=== PATIENT | female | born 1940 | race Caucasian/White ===

== ENCOUNTER 2016-09-27 21:09 | Emergency (ER) | payer MEDICARE ==
[~2016-09-27] VITALS: Ht 152.4 cm; Wt 63.5 kg
[2016-09-27] MEDS ORDERED: LISI-334 PO (21:45)
[2016-09-27] MEDS ORDERED: predniSONE 20 MG TABLET PO ONE (21:45)
[2016-09-27] MEDS ORDERED: TRIA15OI TP (21:45)
[2016-09-27] MEDS ORDERED: diphenhydrAMINE HCL 25 MG CAPSULE PO ONE (21:45)
[2016-09-27] MEDS ORDERED: PRED20TA PO (21:45)
[2016-09-27] MEDS ORDERED: LISINOPRIL 10 MG TABLET PO ONE (21:45)
--- NOTE | 2016-09-27 21:45 | PHYS DOC ---
Past Medical History Past Medical History: Anxiety, Depression, GERD, High Cholesterol, Hypertension , Hypothyroid, Other Additional Past Medical Histor: seasonal allergies Past Surgical History: Hysterectomy, Tubal ligation Alcohol Use: None Drug Use: None Adult General Chief Complaint Chief Complaint: SKIN RASH/ABSCESS [facility] HPI Patient is a 75 year old female presents to the emergency department with a history of rash to her chest. Patient states the rash has been their for a while. Family member at bedside states the rash developed over night. Patient states the area itches, denies drainage or discharge from the site. Patient denies fever, chills or nausea or vomiting. Last took benadryl this morning. Patient has a history of HTN although has moved from [place] and does not have BP medications. Patient denies SOA, chest pain headache or blurred vision. Review of Systems Review of Systems Constitutional: Denies fever or chills [] Eyes: Denies change in visual acuity, redness, or eye pain [] HENT: Denies nasal congestion or sore throat [] Respiratory: Denies cough or shortness of breath [] Cardiovascular: No additional information not addressed in HPI [] GI: Denies abdominal pain, nausea, vomiting, bloody stools or diarrhea [] : Denies dysuria or hematuria [] Musculoskeletal: Denies back pain or joint pain [] Integument: rash denies skin lesions [] Neurologic: Denies headache, focal weakness or sensory changes [] Endocrine: Denies polyuria or polydipsia [] Allergies Allergies Allergies Coded Allergies Type Severity Reaction Last Updated Verified codeine Allergy Intermediate Nausea and Vomiting 09/27/16 Yes Physical Exam Physical Exam Constitutional: Well developed, well nourished, no acute distress, non-toxic appearance. [] HENT: Normocephalic, atraumatic, bilateral external ears normal, oropharynx moist, no oral exudates, nose normal. [] Eyes: PERRLA, EOMI, conjunctiva normal, no discharge. [] Neck: Normal range of motion, no tenderness, supple, no stridor. [] Cardiovascular:Heart rate regular rhythm, no murmur [] Lungs & Thorax: Bilateral breath sounds clear to auscultation [] Skin: Warm, dry, no erythema. Patient with red raised rash noted the chest that crosses over the midline. No drainage, no discharge noted. Back: No tenderness Extremities: No tenderness, no cyanosis, no clubbing, ROM intact, no edema. [] Neurologic: Alert and oriented X 3, normal motor function, normal sensory function, no focal deficits noted. [] Psychologic: Affect normal, judgement normal, mood normal. [] Current Patient Data Vital Signs Vital Signs Date Time Temp Pulse Resp B/P (MAP) Pulse Ox O2 Delivery O2 Flow Rate FiO2 09/27/16 21:24 98.0 90 22 95 Room Air 98.0 EKG EKG [] Radiology/Procedures Radiology/Procedures [] Course & Med Decision Making Course & Med Decision Making Pertinent Labs and Imaging studies reviewed. (See chart for details) Patient will be provided with a prescription for lisinopril here in the emergency department. She will be discharged home with her normal dosage in which they had a list of her medications. She'll be recommended to take Benadryl 25 mg every 6 hours for itching and irritation. Patient will also be encouraged take prednisone to help with the irritation. We'll provide her medical and cream to be placed over the area. Signs symptoms to return back to emergency department as been provided. Patient agrees with discharge instructions treatment regimens and follow-up recommendations. Patient family member been instructed Benadryl will cause drowsiness do not take if she needs to be alert and oriented. [] Dragon Disclaimer Dragon Disclaimer This electronic medical record was generated, in whole or in part, using a voice recognition dictation system. Departure Departure Impression: Primary Impression: Contact dermatitis Additional Impression: HTN (hypertension) Disposition: 01 HOME, SELF-CARE Condition: STABLE Referrals: NO PCP (PCP) Patient Instructions: Contact Dermatitis, [id number], Hypertension Additional Instructions: Keep the area clean and dry. Keep the area as cool as possible this will help prevent irritation and itching. Medication as prescribed. Benadryl 25 mg every 6 hours. This medication will cause drowsiness do not take any be alert and oriented. Monitor your blood pressure on a daily basis and take this to your primary care physician or your appointment. Return to emergency prior signs symptoms of become worse. Follow-up through primary care physician within the next week. Scripts Triamcinolone Acetonide (TRIAMCINOLONE ACETONIDE 0.1% OINT) 15 Gm Oint...g. 1 LOWELL TP BID for WOUND CARE, #1 TUBE MIX WITH EUCERIN DIRECTED BY PHYSICIAN Prov: SHANNON SAHU APRN 09/27/16 Prednisone (PREDNISONE) 20 Mg Tablet 40 MG PO DAILY, #14 TAB Prov: SHANNON SAHU APRN 09/27/16 Lisinopril (LISINOPRIL) 20 Mg Tablet 1 TAB PO DAILY, #15 TAB 5 Refills Prov: SHANNON SAHU APRN 09/27/16 Problem Qualifiers SHANNON SAHU APRN Sep 27, 2016 21:45
[2016-09-27 21:48] VITALS: BP 178/77
== END 2016-09-27 21:50 | disposition home or self-care (01) ==
LOC: ER 21:09
DX: L25.9 Unspecified contact dermatitis, unspecified cause (principal); I10 Essential (primary) hypertension; F41.9 Anxiety disorder, unspecified; F32.9 Major depressive disorder, single episode, unspecified; K21.9 Gastro-esophageal reflux disease without esophagitis; E78.00 Pure hypercholesterolemia, unspecified; E03.9 Hypothyroidism, unspecified; Z88.5 Allergy status to narcotic agent; Z90.710 Acquired absence of both cervix and uterus; Z98.51 Tubal ligation status
CPT/HCPCS: 99284; J7512; Q0163

== ENCOUNTER 2016-10-06 10:24 | Inpatient (IN) | payer MEDICARE ==
[~2016-10-06] VITALS: Ht 152.4 cm; Wt 70.5 kg
[~2016-10-06 10:24] MED LIST: LISI-334 PO; PRED20TA PO; TRIA15OI TP
--- NOTE | 2016-10-06 10:32 | PHYS DOC ---
Past Medical History Past Medical History: Anxiety, Depression, GERD, High Cholesterol, Hypertension , Hypothyroid, Other Additional Past Medical Histor: seasonal allergies Past Surgical History: Hysterectomy, Tubal ligation Alcohol Use: None Drug Use: None Adult General Chief Complaint Chief Complaint: RECTAL BLEED HPI HPI Patient is a 75 year old female presenting to the emergency department for evaluation of abdominal pain and rectal bleeding. Patient says that she has hemorrhoids that have bled before in the past and she had 3 bowel movements since 8 PM last night and says that each one was associated with bright red blood. She says that it was not particularly hard and did not have diarrhea she 's been having diffuse abdominal cramping worse in her lower abdomen since 8:00 as well. Patient denies any prior surgical history and she denies taking any blood thinners. She is in no obvious distress with normal vital signs. Review of Systems Review of Systems Constitutional: Denies fever or chills [] Eyes: Denies change in visual acuity, redness, or eye pain [] HENT: Denies nasal congestion or sore throat [] Respiratory: Denies cough or shortness of breath [] Cardiovascular: No additional information not addressed in HPI [] GI: + abdominal pain, nausea, bloody stools : Denies dysuria or hematuria [] Musculoskeletal: Denies back pain or joint pain [] Integument: Denies rash or skin lesions [] Neurologic: Denies headache, focal weakness or sensory changes [] Current Medications Current Medications Current Medications Medications (Trade) Dose Ordered Sig/Jackie Start Time Stop Time Status Last Admin Dose Admin Fentanyl Citrate (Fentanyl 2ml Vial) 50 mcg PRN Q2HR PRN 10/06/16 13:30 10/07/16 13:29 Info (Do NOT chart on this entry -- for MONITORING) 1 each PRN DAILY PRN 10/06/16 11:00 10/08/16 10:59 Iohexol (Omnipaque 300 Mg/ml) 75 ml 1X ONCE 10/06/16 11:00 10/06/16 11:01 DC 10/06/16 11:36 60 ML Levofloxacin/ Dextrose 150 ml @ 100 mls/hr 1X ONCE 10/06/16 13:30 10/06/16 14:59 10/06/16 13:31 100 MLS/HR Metronidazole 100 ml @ 100 mls/hr 1X ONCE 10/06/16 13:30 10/06/16 14:29 10/06/16 13:31 100 MLS/HR Ondansetron HCl (Zofran) 4 mg PRN Q8HRS PRN 10/06/16 13:30 10/07/16 13:29 Pantoprazole Sodium (Protonix Vial) 40 mg 1X ONCE 10/06/16 10:45 10/06/16 10:46 DC 10/06/16 11:02 40 MG Sodium Chloride 1,000 ml @ 1,000 mls/hr 1X ONCE 10/06/16 10:45 10/06/16 11:44 DC 10/06/16 11:03 1,000 MLS/HR Allergies Allergies Allergies Coded Allergies Type Severity Reaction Last Updated Verified codeine Allergy Intermediate Nausea and Vomiting 09/27/16 Yes Physical Exam Physical Exam Constitutional: Well developed, well nourished, no acute distress, non-toxic appearance. [] HENT: Normocephalic, atraumatic, bilateral external ears normal, oropharynx moist, no oral exudates, nose normal. [] Eyes: PERRLA, EOMI, conjunctiva normal, no discharge. [] Neck: Normal range of motion, no tenderness, supple, no stridor. [] Cardiovascular:Heart rate regular rhythm, no murmur [] Lungs & Thorax: Bilateral breath sounds clear to auscultation [] Abdomen: Bowel sounds normal, soft, positive diffuse tenderness worse in lower quadrants but no rebound or guarding, no masses, no pulsatile masses. Rectal exam with [id number] sized external hemorrhoids that there is no active bleeding and they were nonthrombosed. Internal rectal examination with no tenderness or masses palpated. Skin: Warm, dry, no erythema, no rash. [] Back: No tenderness, no CVA tenderness. [] Extremities: No tenderness, no cyanosis, no clubbing, ROM intact, no edema. [] Neurologic: Alert and oriented X 3, normal motor function, normal sensory function, no focal deficits noted. [] Current Patient Data Vital Signs Vital Signs Date Time Temp Pulse Resp B/P (MAP) Pulse Ox O2 Delivery O2 Flow Rate FiO2 10/06/16 11:02 24 10/06/16 10:33 97.6 105 180/77 (111) 97 Room Air 97.6 Lab Values Laboratory Tests Test 10/06/16 10:40 10/06/16 10:46 10/06/16 10:52 Stool Occult Blood Positive (NEG) White Blood Count 22.3 x10^3/uL (4.0-11.0) H Red Blood Count 3.97 x10^6/uL (3.50-5.40) Hemoglobin 12.1 g/dL (12.0-15.5) Hematocrit 35.5 % (36.0-47.0) L Mean Corpuscular Volume 90 fL (79-100) Mean Corpuscular Hemoglobin 30 pg (25-35) Mean Corpuscular Hemoglobin Concent 34 g/dL (31-37) Red Cell Distribution Width 12.4 % (11.5-14.5) Platelet Count 281 x10^3/uL (140-400) Neutrophils (%) (Auto) 72 % (31-73) Lymphocytes (%) (Auto) 21 % (24-48) L Monocytes (%) (Auto) 6 % (0-9) Eosinophils (%) (Auto) 0 % (0-3) Basophils (%) (Auto) 1 % (0-3) Neutrophils # (Auto) 16.1 x10^3uL (1.8-7.7) H Lymphocytes # (Auto) 4.7 x10^3/uL (1.0-4.8) Monocytes # (Auto) 1.3 x10^3/uL (0.0-1.1) H Eosinophils # (Auto) 0.1 x10^3/uL (0.0-0.7) Basophils # (Auto) 0.1 x10^3/uL (0.0-0.2) Platelet Estimate Pending Prothrombin Time 12.9 SEC (11.7-14.0) Prothrombin Time INR 1.0 (0.8-1.1) PTT 28 SEC (24-38) Sodium Level 137 mmol/L (136-145) Potassium Level 4.0 mmol/L (3.5-5.1) Chloride Level 102 mmol/L (98-107) Carbon Dioxide Level 27 mmol/L (21-32) Anion Gap 8 (6-14) Blood Urea Nitrogen 20 mg/dL (7-20) Creatinine 1.2 mg/dL (0.6-1.0) H Estimated GFR (Cockcroft-Gault) 43.7 BUN/Creatinine Ratio 17 (6-20) Glucose Level 137 mg/dL (70-99) H Calcium Level 8.5 mg/dL (8.5-10.1) Magnesium Level 1.8 mg/dL (1.8-2.4) Total Bilirubin 0.5 mg/dL (0.2-1.0) Aspartate Amino Transferase (AST) 14 U/L (15-37) L Alanine Aminotransferase (ALT) 17 U/L (14-59) Alkaline Phosphatase 50 U/L (46-116) Creatine Kinase 19 U/L (26-192) L Total Protein 6.9 g/dL (6.4-8.2) Albumin 3.1 g/dL (3.4-5.0) L Albumin/Globulin Ratio 0.8 (1.0-1.7) L Ethyl Alcohol Level < 10 mg/dL (0-10) Urine Collection Type Unknown Urine Color Yellow Urine Clarity Clear Urine pH 6.0 Urine Specific [place] 1.020 Urine Protein Negative mg/dL (NEG-TRACE) Urine Glucose (UA) Negative mg/dL (NEG) Urine Ketones (Stick) Negative mg/dL (NEG) Urine Blood Negative (NEG) Urine Nitrite Negative (NEG) Urine Bilirubin Negative (NEG) Urine Urobilinogen Dipstick 0.2 mg/dL (0.2 mg/dL) Urine Leukocyte Esterase Negative (NEG) Urine RBC 0 /HPF (0-2) Urine WBC 0 /HPF (0-4) Urine Squamous Epithelial Cells Few /LPF Urine Bacteria 0 /HPF (0-FEW) Urine Hyaline Casts Occasional /HPF Urine Mucus Mod /LPF Urine Opiates Screen Pos (NEG) Urine Methadone Screen Neg (NEG) Urine Barbiturates Neg (NEG) Urine Phencyclidine Screen Neg (NEG) Urine Amphetamine/Methamphetamine Neg (NEG) Urine Benzodiazepines Screen Neg (NEG) Urine Cocaine Screen Neg (NEG) Urine Cannabinoids Screen Neg (NEG) Urine Ethyl Alcohol Neg (NEG) Laboratory Tests 10/06/16 10:46 Laboratory Tests 10/06/16 10:46 EKG EKG [] Radiology/Procedures Radiology/Procedures Indication lower abdominal pain with nausea and vomiting for 3 days. Axial images to the abdomen and pelvis were obtained. 60 cc of Omnipaque 300 was administered intravenously. No oral contrast was administered. No prior imaging is available. There is a small hiatus hernia. On the first image generated there is a nodule, perhaps calcified, in the right middle lobe. (Calcification is not certain on the basis of this exam). An acute finding in either lung base is not seen. The liver and spleen appear unremarkable. The gallbladder appears grossly normal. No pancreatic abnormality is seen. The adrenal glands and kidneys appear normal. The cecum, ascending and transverse colon appear unremarkable. There is, however, diffuse wall thickening involving the colon at the splenic flexure with diffuse thickening throughout the entire descending colon and most of the sigmoid colon. Findings are compatible with colitis. This may be on an ischemic or infectious basis. Inflammatory bowel disease would be an additional consideration. An additional finding in the pelvis is not seen. IMPRESSION: Left-sided colitis as outlined above. Possible small nodule in the right middle lobe. DICTATED and SIGNED BY: VALERIE ALCARAZ MD DATE: 10/06/16 1206 Course & Med Decision Making Course & Med Decision Making Will check screening labs do a CT treat symptoms and reassess. Patient with significant leukocytosis and was found to have colitis on CT. She has GI bleeding likely from this colitis. Given her symptoms and her age he will be admitted for further observation and treatment including IV antibiotics and hydration. Patient and family aware and agreeable with plan. Dragon Disclaimer Dragon Disclaimer This electronic medical record was generated, in whole or in part, using a voice recognition dictation system. Departure Departure Impression: Primary Impression: Colitis Additional Impressions: Leukocytosis GI bleed Abdominal pain Disposition: ADMITTED INPATIENT Admitting Physician: Gabe Armstrong Condition: STABLE Referrals: NO PCP (PCP) Problem Qualifiers STEPHANIE STEINBERG DO Oct 06, 2016 10:32
[2016-10-06] MEDS ORDERED: PANTOPRAZOLE IV PUSH 40 MG VIAL. IVP ONE (10:45)
[2016-10-06] MEDS ORDERED: ONDANSETRON PF 4 MG/2 ML VIAL. IV ONE (10:45)
[2016-10-06] MEDS ORDERED: fentaNYL PF VIAL 100 MCG/2 ML VIAL IV ONE (10:45)
[2016-10-06] MEDS ORDERED: IV NORMAL SALINE 1000ML BAG 1,000 ML IV ONE ×2 (10:45→13:45)
[2016-10-06 10:57] LABS: BASO # 0.1 x10^3/uL (0.0-0.2); BASO % 1 % (0-3); EOS % 0 % (0-3); HEMATOCRIT 35.5 % (36.0-47.0); HEMOGLOBIN 12.1 g/dL (12.0-15.5); LYMPH # 4.7 x10^3/uL (1.0-4.8); LYMPH % 21 % (24-48); MEAN CORPUSCULAR HEMOGLOBIN 30 pg (25-35); MEAN CORPUSCULAR HGB CONC 34 g/dL (31-37); MEAN CORPUSCULAR VOLUME 90 fL (79-100); MONO % 6 % (0-9); NEUT % 72 % (31-73); PLATELET COUNT 281 x10^3/uL (140-400); RED BLOOD COUNT 3.97 x10^6/uL (3.50-5.40); RED CELL DISTRIBUTION WIDTH 12.4 % (11.5-14.5); WHITE BLOOD COUNT 22.3 x10^3/uL (4.0-11.0)
[2016-10-06] MEDS ORDERED: CONTRAST GIVEN MC PRN (11:00)
[2016-10-06] MEDS ORDERED: IOHEXOL 300 MG/ML 75 ML VIAL IV ONE (11:00)
[2016-10-06 11:04] LABS: BILIRUBIN,URINE NEGATIVE (NEG); GLUCOSE,URINE NEGATIVE (NEG); NITRITE,URINE NEGATIVE (NEG); PROTEIN,URINE NEGATIVE (NEG-TRACE); UROBILINOGEN,URINE 0.2 mg/dL (0.2 mg/dL)
[2016-10-06 11:05] LABS: BARBITURATES NEG (NEG); BENZODIAZEPINES NEG (NEG); CANNABINOIDS NEG (NEG); COCAINE NEG (NEG); METHADONE NEG (NEG); OPIATES POS (NEG); PHENCYCLIDINE NEG (NEG)
[2016-10-06 11:10] LABS: NEG OBC FOB NEG; POS OBC FOB POS
[2016-10-06 11:17] LABS: CALCIUM 8.5 mg/dL (8.5-10.1); CREATININE 1.2 mg/dL (0.6-1.0); GFR 43.7
[2016-10-06 11:18] LABS: PROTHROMBIN TIME PATIENT 12.9 SEC (11.7-14.0)
[2016-10-06 11:18] LABS: BACTERIA,URINE 0 /HPF (0-FEW); RBC,URINE 0 /HPF (0-2); SQUAMOUS EPITHELIAL CELL,UR FEW /LPF; WBC,URINE 0 /HPF (0-4)
[2016-10-06 11:23] LABS: ALBUMIN 3.1 g/dL (3.4-5.0); ALBUMIN/GLOBULIN RATIO 0.8 (1.0-1.7); MAGNESIUM 1.8 mg/dL (1.8-2.4); TOTAL BILIRUBIN 0.5 mg/dL (0.2-1.0); TOTAL PROTEIN 6.9 g/dL (6.4-8.2)
--- NOTE | 2016-10-06 12:35 | RAD ---
Indication lower abdominal pain with nausea and vomiting for 3 days. Axial images to the abdomen and pelvis were obtained. 60 cc of Omnipaque 300 was administered intravenously. No oral contrast was administered. No prior imaging is available. There is a small hiatus hernia. On the first image generated there is a nodule, perhaps calcified, in the right middle lobe. (Calcification is not certain on the basis of this exam). An acute finding in either lung base is not seen. The liver and spleen appear unremarkable. The gallbladder appears grossly normal. No pancreatic abnormality is seen. The adrenal glands and kidneys appear normal. The cecum, ascending and transverse colon appear unremarkable. There is, however, diffuse wall thickening involving the colon at the splenic flexure with diffuse thickening throughout the entire descending colon and most of the sigmoid colon. Findings are compatible with colitis. This may be on an ischemic or infectious basis. Inflammatory bowel disease would be an additional consideration. An additional finding in the pelvis is not seen. IMPRESSION: Left-sided colitis as outlined above. Possible small nodule in the right middle lobe.
[2016-10-06] MEDS ORDERED: ONDANSETRON PF 4 MG/2 ML VIAL. IV PRN ×2 (13:30→17:00)
[2016-10-06] MEDS ORDERED: fentaNYL PF VIAL 100 MCG/2 ML VIAL IV PRN (13:30)
[2016-10-06 13:38] LABS: % EOS 1 % (0-5)
[2016-10-06 13:39] LABS: PLT ESTIMATE ADEQUATE (ADEQUATE)
--- NOTE | 2016-10-06 14:03 | ACF ---
Admission Forms Criteria GASTROINTESTINAL BLEEDING Clinical Indications for Inpatient Care (Place 'X' for any and all applicable criteria): Ongoing inpatient care may be indicated for gastrointestinal bleeding with ANY ONE of the following (4)(20)(21)(22)(23)(24): [X]I. Active bleeding (eg, fresh voluminous blood in emesis or nasogastric aspirate, or per rectum) [ ]II. Hemodynamic instability [ ]III. Anticoagulation therapy or coagulopathy ((eg, advanced liver disease, irreversible anticoagulation) [X]IV. Ischemic colitis (22) [ ]V. Endoscopy showing arterial bleeding, adherent clot, nonbleeding visible vessel, varices, flat red spots, ulcer size greater than 2 cm, or portal hypertensive gastropathy [ ]. High-risk low platelet count [ ]VII. Anemia requiring inpatient care as indicated by ANY ONE of the following a)[ ] Cognitive impairment b)[ ] Syncope c)[ ] Heart failure d)[ ] Chest pain e)[ ] Dyspnea f)[ ] Other findings suggesting inadequate perfusion (eg, peripheral or myocardial ischemia, end organ dysfunction) [ ]VIII. High-risk low platelet count [ ]IX. Suspected variceal cause of bleeding as indicated by ANY ONE of the following(27)(28): a)[ ] Known varices b)[ ] Hepatomegaly or splenomegaly c)[ ] Ascites d)[ ] Jaundice or scleral icterus e)[ ] History of liver disease (eg, cirrhosis) f)[ ] Physical findings of portal hypertension (eg, caput medusa) g)[ ] Comorbid disorder indicating risk for portal vein thrombosis (eg , abdominal surgery, sepsis, shock, exchange transfusion, prior umbilical vein catheterization) Extended stay may be needed until ALL of the following are present(20)(38)(47): [ ]a) Hemodynamic stability [ ]b) No evidence of active bleeding (eg, stable Hematocrit) [ ]c) Platelet count, prothrombin time, and partial thromboplastin time acceptable for next level of care [ ]d) Surgical or other acute intervention not needed [ ]e) Oral hydration and diet tolerated The original [facility] content created by [employer] Over[employer] has been revised. The portions of the content which have been revised are identified through the use of italic text or in bold, and [employer] Overton has neither reviewed nor approved the modified material. All other unmodified content is copyright [facility]. Please see references footnoted in the original [facility] edition 2016 Admission Criteria Met?: Yes DUANE BOONE Oct 06, 2016 14:03
[2016-10-06 15:30] VITALS: BP 108/60
[2016-10-06] MEDS ORDERED: SIMV20TA3 PO (16:23)
[2016-10-06] MEDS ORDERED: LEVO50TA5 PO (16:23)
[2016-10-06] MEDS ORDERED: HYDR-2758 PO (16:23)
[2016-10-06] MEDS ORDERED: ESCITALOPRAM OX10 MG PO (16:23)
[2016-10-06] MEDS ORDERED: MONT10TA9 PO (16:23)
[2016-10-06] MEDS ORDERED: MELO15TA23 PO (16:23)
--- NOTE | 2016-10-06 16:54 | PDOC1 ---
History and Physical Current Problem List Problem List Problems Medical Problems: (1) Abdominal pain Status: Acute (2) Colitis Status: Acute (3) GI bleed Status: Acute (4) Leukocytosis Status: Acute Current Medications Current Medications Current Medications Medications (Trade) Dose Ordered Sig/Jackie Start Time Stop Time Status Last Admin Dose Admin Fentanyl Citrate (Fentanyl 2ml Vial) 50 mcg PRN Q2HR PRN 10/06/16 13:30 10/07/16 13:29 Info (Do NOT chart on this entry -- for MONITORING) 1 each PRN DAILY PRN 10/06/16 11:00 10/08/16 10:59 Iohexol (Omnipaque 300 Mg/ml) 75 ml 1X ONCE 10/06/16 11:00 10/06/16 11:01 DC 10/06/16 11:36 60 ML Levofloxacin/ Dextrose 150 ml @ 100 mls/hr 1X ONCE 10/06/16 13:30 10/06/16 14:59 DC 10/06/16 13:31 100 MLS/HR Metronidazole 100 ml @ 100 mls/hr 1X ONCE 10/06/16 13:30 10/06/16 14:29 DC 10/06/16 13:31 100 MLS/HR Ondansetron HCl (Zofran) 4 mg PRN Q8HRS PRN 10/06/16 13:30 10/07/16 13:29 Pantoprazole Sodium (Protonix Vial) 40 mg 1X ONCE 10/06/16 10:45 10/06/16 10:46 DC 10/06/16 11:02 40 MG Sodium Chloride 1,000 ml @ 125 mls/hr 1X ONCE 10/06/16 13:45 10/06/16 21:44 10/06/16 15:29 125 MLS/HR Allergies Allergies Allergies Coded Allergies Type Severity Reaction Last Updated Verified codeine Allergy Intermediate Nausea and Vomiting 09/27/16 Yes ROS Review of System CONSTITUTIONAL: No fever or chills EYES: No recent changes SKIN: No rash or itching CARDIOVASCULAR: No chest pain, syncope, palpitations, or edema RESPIRATORY: No SOB or cough GASTROINTESTINAL: No nausea, vomiting or abdominal pain NEUROLOGICAL: No headaches or weakness ENDOCRINE: No cold or heat intolerance GENITOURINARY: No urgency or frequency of urination MUSCULOSKELETAL: No back pain or joint pain LYMPHATICS: No enlarged lymph nodes PSYCHIATRIC: No anxiety or depression Physical Exam Physical Exam GEN.: No apparent distress. Alert and oriented. HEENT: Head is normocephalic, atraumatic NECK: Supple. LUNGS: Clear to auscultation. HEART: RRR, S1, S2 present. Peripheral pulses intact ABDOMEN: Soft, nontender. Positive bowel sounds. EXTREMITIES: Without any cyanosis. NEUROLOGIC: Normal speech, normal tone PSYCHIATRIC: Normal affect, normal mood. SKIN: No ulcerations Vitals Vitals Vital Signs Date Time Temp Pulse Resp B/P (MAP) Pulse Ox O2 Delivery O2 Flow Rate FiO2 10/06/16 15:20 Room Air 10/06/16 14:00 78 18 157/69 (98) 98 10/06/16 10:33 97.6 97.6 Labs Labs Laboratory Tests Test 10/06/16 10:40 10/06/16 10:46 10/06/16 10:52 Stool Occult Blood Positive (NEG) White Blood Count 22.3 x10^3/uL (4.0-11.0) Red Blood Count 3.97 x10^6/uL (3.50-5.40) Hemoglobin 12.1 g/dL (12.0-15.5) Hematocrit 35.5 % (36.0-47.0) Mean Corpuscular Volume 90 fL (79-100) Mean Corpuscular Hemoglobin 30 pg (25-35) Mean Corpuscular Hemoglobin Concent 34 g/dL (31-37) Red Cell Distribution Width 12.4 % (11.5-14.5) Platelet Count 281 x10^3/uL (140-400) Neutrophils (%) (Auto) 72 % (31-73) Lymphocytes (%) (Auto) 21 % (24-48) Monocytes (%) (Auto) 6 % (0-9) Eosinophils (%) (Auto) 0 % (0-3) Basophils (%) (Auto) 1 % (0-3) Neutrophils # (Auto) 16.1 x10^3uL (1.8-7.7) Lymphocytes # (Auto) 4.7 x10^3/uL (1.0-4.8) Monocytes # (Auto) 1.3 x10^3/uL (0.0-1.1) Eosinophils # (Auto) 0.1 x10^3/uL (0.0-0.7) Basophils # (Auto) 0.1 x10^3/uL (0.0-0.2) Segmented Neutrophils % 61 % (35-66) Band Neutrophils % 12 % (0-9) Lymphocytes % 24 % (24-48) Monocytes % 2 % (0-10) Eosinophils % 1 % (0-5) Platelet Estimate Adequate (ADEQUATE) Prothrombin Time 12.9 SEC (11.7-14.0) Prothromb Time International Ratio 1.0 (0.8-1.1) Activated Partial Thromboplast Time 28 SEC (24-38) Sodium Level 137 mmol/L (136-145) Potassium Level 4.0 mmol/L (3.5-5.1) Chloride Level 102 mmol/L (98-107) Carbon Dioxide Level 27 mmol/L (21-32) Anion Gap 8 (6-14) Blood Urea Nitrogen 20 mg/dL (7-20) Creatinine 1.2 mg/dL (0.6-1.0) Estimated GFR (Cockcroft-Gault) 43.7 BUN/Creatinine Ratio 17 (6-20) Glucose Level 137 mg/dL (70-99) Calcium Level 8.5 mg/dL (8.5-10.1) Magnesium Level 1.8 mg/dL (1.8-2.4) Total Bilirubin 0.5 mg/dL (0.2-1.0) Aspartate Amino Transf (AST/SGOT) 14 U/L (15-37) Alanine Aminotransferase (ALT/SGPT) 17 U/L (14-59) Alkaline Phosphatase 50 U/L (46-116) Creatine Kinase 19 U/L (26-192) Total Protein 6.9 g/dL (6.4-8.2) Albumin 3.1 g/dL (3.4-5.0) Albumin/Globulin Ratio 0.8 (1.0-1.7) Ethyl Alcohol Level < 10 mg/dL (0-10) Urine Collection Type Unknown Urine Color Yellow Urine Clarity Clear Urine pH 6.0 Urine Specific [place] 1.020 Urine Protein Negative mg/dL (NEG-TRACE) Urine Glucose (UA) Negative mg/dL (NEG) Urine Ketones (Stick) Negative mg/dL (NEG) Urine Blood Negative (NEG) Urine Nitrite Negative (NEG) Urine Bilirubin Negative (NEG) Urine Urobilinogen Dipstick 0.2 mg/dL (0.2 mg/dL) Urine Leukocyte Esterase Negative (NEG) Urine RBC 0 /HPF (0-2) Urine WBC 0 /HPF (0-4) Urine Squamous Epithelial Cells Few /LPF Urine Bacteria 0 /HPF (0-FEW) Urine Hyaline Casts Occasional /HPF Urine Mucus Mod /LPF Urine Opiates Screen Pos (NEG) Urine Methadone Screen Neg (NEG) Urine Barbiturates Neg (NEG) Urine Phencyclidine Screen Neg (NEG) Urine Amphetamine/Methamphetamine Neg (NEG) Urine Benzodiazepines Screen Neg (NEG) Urine Cocaine Screen Neg (NEG) Urine Cannabinoids Screen Neg (NEG) Urine Ethyl Alcohol Neg (NEG) Laboratory Tests Test 10/06/16 10:40 10/06/16 10:46 10/06/16 10:52 Stool Occult Blood Positive (NEG) White Blood Count 22.3 x10^3/uL (4.0-11.0) Red Blood Count 3.97 x10^6/uL (3.50-5.40) Hemoglobin 12.1 g/dL (12.0-15.5) Hematocrit 35.5 % (36.0-47.0) Mean Corpuscular Volume 90 fL (79-100) Mean Corpuscular Hemoglobin 30 pg (25-35) Mean Corpuscular Hemoglobin Concent 34 g/dL (31-37) Red Cell Distribution Width 12.4 % (11.5-14.5) Platelet Count 281 x10^3/uL (140-400) Neutrophils (%) (Auto) 72 % (31-73) Lymphocytes (%) (Auto) 21 % (24-48) Monocytes (%) (Auto) 6 % (0-9) Eosinophils (%) (Auto) 0 % (0-3) Basophils (%) (Auto) 1 % (0-3) Neutrophils # (Auto) 16.1 x10^3uL (1.8-7.7) Lymphocytes # (Auto) 4.7 x10^3/uL (1.0-4.8) Monocytes # (Auto) 1.3 x10^3/uL (0.0-1.1) Eosinophils # (Auto) 0.1 x10^3/uL (0.0-0.7) Basophils # (Auto) 0.1 x10^3/uL (0.0-0.2) Segmented Neutrophils % 61 % (35-66) Band Neutrophils % 12 % (0-9) Lymphocytes % 24 % (24-48) Monocytes % 2 % (0-10) Eosinophils % 1 % (0-5) Platelet Estimate Adequate (ADEQUATE) Prothrombin Time 12.9 SEC (11.7-14.0) Prothromb Time International Ratio 1.0 (0.8-1.1) Activated Partial Thromboplast Time 28 SEC (24-38) Sodium Level 137 mmol/L (136-145) Potassium Level 4.0 mmol/L (3.5-5.1) Chloride Level 102 mmol/L (98-107) Carbon Dioxide Level 27 mmol/L (21-32) Anion Gap 8 (6-14) Blood Urea Nitrogen 20 mg/dL (7-20) Creatinine 1.2 mg/dL (0.6-1.0) Estimated GFR (Cockcroft-Gault) 43.7 BUN/Creatinine Ratio 17 (6-20) Glucose Level 137 mg/dL (70-99) Calcium Level 8.5 mg/dL (8.5-10.1) Magnesium Level 1.8 mg/dL (1.8-2.4) Total Bilirubin 0.5 mg/dL (0.2-1.0) Aspartate Amino Transf (AST/SGOT) 14 U/L (15-37) Alanine Aminotransferase (ALT/SGPT) 17 U/L (14-59) Alkaline Phosphatase 50 U/L (46-116) Creatine Kinase 19 U/L (26-192) Total Protein 6.9 g/dL (6.4-8.2) Albumin 3.1 g/dL (3.4-5.0) Albumin/Globulin Ratio 0.8 (1.0-1.7) Ethyl Alcohol Level < 10 mg/dL (0-10) Urine Collection Type Unknown Urine Color Yellow Urine Clarity Clear Urine pH 6.0 Urine Specific [place] 1.020 Urine Protein Negative mg/dL (NEG-TRACE) Urine Glucose (UA) Negative mg/dL (NEG) Urine Ketones (Stick) Negative mg/dL (NEG) Urine Blood Negative (NEG) Urine Nitrite Negative (NEG) Urine Bilirubin Negative (NEG) Urine Urobilinogen Dipstick 0.2 mg/dL (0.2 mg/dL) Urine Leukocyte Esterase Negative (NEG) Urine RBC 0 /HPF (0-2) Urine WBC 0 /HPF (0-4) Urine Squamous Epithelial Cells Few /LPF Urine Bacteria 0 /HPF (0-FEW) Urine Hyaline Casts Occasional /HPF Urine Mucus Mod /LPF Urine Opiates Screen Pos (NEG) Urine Methadone Screen Neg (NEG) Urine Barbiturates Neg (NEG) Urine Phencyclidine Screen Neg (NEG) Urine Amphetamine/Methamphetamine Neg (NEG) Urine Benzodiazepines Screen Neg (NEG) Urine Cocaine Screen Neg (NEG) Urine Cannabinoids Screen Neg (NEG) Urine Ethyl Alcohol Neg (NEG) VTE Prophylaxis Ordered VTE Prophylaxis Devices: Yes SHAYLA SHER MD Oct 06, 2016 16:54
[2016-10-06] MEDS ORDERED: hydrALAZINE 20 MG/ML VIAL. IVP PRN (17:00)
[2016-10-06] MEDS ORDERED: ACETAMINOPHEN 325 MG TABLET. PO PRN (17:00)
[2016-10-06] MEDS: HYDROcodone/APAP 5/325MG 1 TAB TABLET PO PRN (17:56)
--- NOTE | 2016-10-06 19:27 | HP ---
ADMIT DATE: 10/06/2016 CHIEF COMPLAINT: Abdominal pain and rectal bleeding. HISTORY OF PRESENT ILLNESS: This 75-year-old female patient presented to the ER with complaints of abdominal pain and rectal bleeding. The patient has prior history of hemorrhoids; however, she had 3 bowel movements from yesterday associated with bright red blood in it. She has been having diffuse abdominal pain, which is intractable in nature with some vomiting. The patient denies any prior surgeries. She denies any fever, chills, nausea or vomiting. PAST MEDICAL HISTORY: Anxiety, depression, GERD, hyperlipidemia, hypertension, hypothyroidism, and seasonal allergies. PAST SURGICAL HISTORY: Hysterectomy with tubal ligation. PERSONAL HISTORY: No smoking, no alcohol, no drug abuse. FAMILY HISTORY: Unknown to patient. ALLERGIES: CODEINE. REVIEW OF SYSTEMS AND PHYSICAL EXAMINATION: Please see my electronic H and P. LABORATORY FINDINGS: WBC 22,000, hemoglobin is 12.1, MCV is 90, AND platelets 281. Chemistry, Sodium 131, potassium is 4.0, chloride is ____, BUN is 20, creatinine 1.2, glucose 137, calcium is 8.5, and magnesium 1.8. INR is 12.9. Her urine drug screen is negative except for opioids. FOBT is positive. IMAGING STUDIES: Abdomen and pelvis CT with IV contrast showed left-sided colitis. ASSESSMENT AND PLAN: 1. Acute abdominal pain with rectal bleed possibly due to colitis, ischemia versus infectious process. 2. Intractable abdominal pain. 3. Gastroesophageal reflux disease. 4. Hyperlipidemia. 5. Hypertension. 6. Hypothyroidism. 7. Anxiety. PLAN: 1. We will keep patient n.p.o. and continue IV hydration ____ mL of normal saline. 2. Pain control with IV fentanyl q. 2 hours as needed. 3. Consult Gastroenterology. 4. Continue antibiotics for suspected infectious process, on ciprofloxacin and Flagyl for now. 5. If the patient's leukocytosis improves, we can de-escalate antibiotics. 6. Home medications reviewed and reconciled. We will continue home medications. 7. P.r.n. hydralazine for hypertension. PLAN: I explained to patient and is agreeable with current management. The patient is agreeable for n.p.o. Prognosis is guarded. SHAYLA SHER MD DR: ZAIN/david JOB#: [id number] / [id number]
[2016-10-06 19:59] VITALS: BP 95/43
[2016-10-06] MEDS: ALBUTEROL SULFATE 2.5 MG/3 ML NEBU. NEB PRN (20:10)
[2016-10-06] MEDS: SIMVASTATIN 20 MG TABLET PO SCH (20:55)
[2016-10-06] MEDS: MONTELUKAST SODIUM 10 MG TABLET. PO SCH (20:55)
[2016-10-06] MEDS: TRIAMCINOLONE ACETONIDE 0.1% TOPICAL OINTMENT 15GM TUBE. TP SCH (21:00)
[2016-10-06] MEDS ORDERED: ZOLP5TAB PO (22:49)
[2016-10-06] MEDS: ZOLPIDEM 5 MG TABLET. PO PRN (23:16)
[2016-10-06 23:50] VITALS: BP 100/42
[2016-10-07 03:59] VITALS: BP 109/50
[2016-10-07 05:56] LABS: BASO % 0 % (0-3); EOS % 1 % (0-3); HEMATOCRIT 28.3 % (36.0-47.0); HEMOGLOBIN 9.6 g/dL (12.0-15.5); LYMPH # 5.3 x10^3/uL (1.0-4.8); LYMPH % 28 % (24-48); MEAN CORPUSCULAR HEMOGLOBIN 31 pg (25-35); MEAN CORPUSCULAR HGB CONC 34 g/dL (31-37); MEAN CORPUSCULAR VOLUME 90 fL (79-100); MONO % 7 % (0-9); NEUT % 64 % (31-73); PLATELET COUNT 205 x10^3/uL (140-400); RED BLOOD COUNT 3.12 x10^6/uL (3.50-5.40); RED CELL DISTRIBUTION WIDTH 12.6 % (11.5-14.5)
[2016-10-07 06:22] LABS: CALCIUM 7.5 mg/dL (8.5-10.1); CREATININE 0.8 mg/dL (0.6-1.0); GFR 69.6; POTASSIUM 3.7 mmol/L (3.5-5.1)
[2016-10-07 07:00] VITALS: BP 133/68
[2016-10-07] MEDS: LEVOTHYROXINE 50 MCG TABLET PO SCH (07:18)
[2016-10-07] MEDS: ALBUTEROL SULFATE 2.5 MG/3 ML NEBU. NEB PRN ×3 (07:30→20:42)
[2016-10-07] MEDS: TRIAMCINOLONE ACETONIDE 0.1% TOPICAL OINTMENT 15GM TUBE. TP SCH ×2 (09:00→21:00)
[2016-10-07] MEDS: ESCITALOPRAM 10 MG TABLET. PO SCH (09:10)
[2016-10-07] MEDS: LISINOPRIL 20 MG TABLET PO SCH (09:11)
[2016-10-07] MEDS: CIPROFLOXACIN 200MG PREMIX 100 ML IV SCH ×2 (09:31→21:16)
[2016-10-07 11:00] VITALS: BP 114/47
--- NOTE | 2016-10-07 12:44 | PDOC2 ---
CONSULT Date of Consult Date of Consult DATE: 10/07/16 TIME: 12:41 Reason for Consult Reason for Consult: Abd pain/diarrhea/rectal bleeding Current Problem List Problem List Problems Medical Problems: (1) Abdominal pain Status: Acute (2) Colitis Status: Acute (3) GI bleed Status: Acute (4) Leukocytosis Status: Acute Current Medications Current Medications Current Medications Ondansetron HCl (Zofran) 8 mg 1X ONCE IV Last administered on 10/06/16 11:02 ; Start 10/06/16 at 10:45; Stop 10/06/16 at 10:46; Status DC Sodium Chloride 1,000 ml @ 1,000 mls/hr 1X ONCE IV Last administered on 11:03; Start 10/06/16 at 10:45; Stop 10/06/16 at 11:44; Status DC Pantoprazole Sodium (Protonix Vial) 40 mg 1X ONCE IVP Last administered on 11:02; Start 10/06/16 at 10:45; Stop 10/06/16 at 10:46; Status DC Fentanyl Citrate (Fentanyl 2ml Vial) 50 mcg 1X ONCE IV Last administered on 11:02; Start 10/06/16 at 10:45; Stop 10/06/16 at 10:46; Status DC Iohexol (Omnipaque 300 Mg/ml) 75 ml 1X ONCE IV Last administered on 10/06/16 11:36; Start 10/06/16 at 11:00; Stop 10/06/16 at 11:01; Status DC Info (Do NOT chart on this entry -- for MONITORING) 1 each PRN DAILY PRN MC SEE COMMENTS; Start 10/06/16 at 11:00; Stop 10/08/16 at 10:59 Ondansetron HCl (Zofran) 4 mg PRN Q8HRS PRN IV NAUSEA/VOMITING; Start 10/06/16 at 13:30; Stop 10/06/16 at 17:12; Status DC Fentanyl Citrate (Fentanyl 2ml Vial) 50 mcg PRN Q2HR PRN IV PAIN; Start at 13:30; Stop 10/07/16 at 13:29 Metronidazole 100 ml @ 100 mls/hr 1X ONCE IV Last administered on 10/06/16 13:31; Start 10/06/16 at 13:30; Stop 10/06/16 at 14:29; Status DC Levofloxacin/ Dextrose 150 ml @ 100 mls/hr 1X ONCE IV Last administered on 13:31; Start 10/06/16 at 13:30; Stop 10/06/16 at 14:59; Status DC Sodium Chloride 1,000 ml @ 125 mls/hr 1X ONCE IV Last administered on 15:29; Start 10/06/16 at 13:45; Stop 10/06/16 at 21:44; Status DC Ciprofloxacin Lactate 100 ml @ 100 mls/hr Q12HR IV Last administered on 09:31; Start 10/07/16 at 09:00 Metronidazole 100 ml @ 100 mls/hr Q12HR IV Last administered on 10/07/16 08: 31; Start 10/06/16 at 21:00 Acetaminophen (Tylenol) 325 mg PRN Q6HRS PRN PO MILD PAIN / TEMP; Start at 17:00 Acetaminophen/ Hydrocodone Bitart (Lortab 5/325) 1 tab PRN Q6HRS PRN PO MODERATE TO SEVERE PAIN Last administered on 10/06/16 17:56; Start 10/06/16 at 17:00 Hydralazine HCl (Apresoline) 10 mg PRN Q4HRS PRN IVP ELEVATED BP, SEE COMMENTS ; Start 10/06/16 at 17:00 Ondansetron HCl (Zofran) 4 mg PRN Q8HRS PRN IV NAUSEA/VOMITING; Start 10/06/16 at 17:00 Albuterol Sulfate (Ventolin Neb Soln) 2.5 mg PRN Q4HRS PRN NEB SHORTNESS OF BREATH Last administered on 10/07/16 07:30; Start 10/06/16 at 17:00 Escitalopram Oxalate (Lexapro) 10 mg DAILY PO Last administered on 10/07/16 09 :10; Start 10/07/16 at 09:00 Levothyroxine Sodium (Synthroid) 50 mcg DAILY07 PO Last administered on 07:18; Start 10/07/16 at 07:00 Lisinopril (Prinivil) 20 mg DAILY PO Last administered on 10/07/16 09:11; Start 10/07/16 at 09:00 Montelukast Sodium (Singulair) 10 mg HS PO Last administered on 10/06/16 20:55 ; Start 10/06/16 at 21:00 Simvastatin (Zocor) 20 mg QHS PO Last administered on 10/06/16 20:55; Start at 21:00 Triamcinolone Acetonide (Kenalog) 1 scarlett BID TP ; Start 10/06/16 at 21:00 Zolpidem Tartrate (Ambien) 5 mg PRN QHS PRN PO INSOMNIA Last administered on 23:16; Start 10/06/16 at 23:00 Active Scripts Active Triamcinolone Acetonide 0.1% Oint (Triamcinolone Acetonide) 15 Gm Oint...g. 1 Scarlett TP BID MIX WITH EUCERIN DIRECTED BY PHYSICIAN Prednisone 20 Mg Tablet 40 Mg PO DAILY Lisinopril 20 Mg Tablet 1 Tab PO DAILY Reported Ambien (Zolpidem Tartrate) 5 Mg Tablet 1 Tab PO QHS Escitalopram Oxalate 10 Mg Tablet 1 Tab PO DAILY Montelukast Sodium Tablet (Montelukast Sodium) 10 Mg Tablet 10 Mg PO HS Hydrocodone-Apap 5-325 (Hydrocodone Bit/Acetaminophen) 1 Each Tablet 1 Tab PO PRN Q8HRS PRN Meloxicam 15 Mg Tablet 1 Tab PO DAILY Levothyroxine Sodium 50 Mcg Tablet 1 Tab PO DAILY Simvastatin 20 Mg Tablet 1 Tab PO QHS Allergies Allergies: Coded Allergies: codeine (Verified Allergy, Intermediate, Nausea and Vomiting, 09/27/16) Vitals VITALS Vital Signs Date Time Temp Pulse Resp B/P (MAP) Pulse Ox O2 Delivery O2 Flow Rate FiO2 10/07/16 11:00 98.3 86 18 114/47 (69) 97 Room Air 98.3 Labs Labs Laboratory Tests Test 10/06/16 10:40 10/06/16 10:46 10/06/16 10:52 10/07/16 04:00 Stool Occult Blood Positive (NEG) White Blood Count 22.3 x10^3/uL (4.0-11.0) 19.0 x10^3/uL (4.0-11.0) Red Blood Count 3.97 x10^6/uL (3.50-5.40) 3.12 x10^6/uL (3.50-5.40) Hemoglobin 12.1 g/dL (12.0-15.5) 9.6 g/dL (12.0-15.5) Hematocrit 35.5 % (36.0-47.0) 28.3 % (36.0-47.0) Mean Corpuscular Volume 90 fL (79-100) 90 fL (79-100) Mean Corpuscular Hemoglobin 30 pg (25-35) 31 pg (25-35) Mean Corpuscular Hemoglobin Concent 34 g/dL (31-37) 34 g/dL (31-37) Red Cell Distribution Width 12.4 % (11.5-14.5) 12.6 % (11.5-14.5) Platelet Count 281 x10^3/uL (140-400) 205 x10^3/uL (140-400) Neutrophils (%) (Auto) 72 % (31-73) 64 % (31-73) Lymphocytes (%) (Auto) 21 % (24-48) 28 % (24-48) Monocytes (%) (Auto) 6 % (0-9) 7 % (0-9) Eosinophils (%) (Auto) 0 % (0-3) 1 % (0-3) Basophils (%) (Auto) 1 % (0-3) 0 % (0-3) Neutrophils # (Auto) 16.1 x10^3uL (1.8-7.7) 12.1 x10^3uL (1.8-7.7) Lymphocytes # (Auto) 4.7 x10^3/uL (1.0-4.8) 5.3 x10^3/uL (1.0-4.8) Monocytes # (Auto) 1.3 x10^3/uL (0.0-1.1) 1.4 x10^3/uL (0.0-1.1) Eosinophils # (Auto) 0.1 x10^3/uL (0.0-0.7) 0.1 x10^3/uL (0.0-0.7) Basophils # (Auto) 0.1 x10^3/uL (0.0-0.2) 0.0 x10^3/uL (0.0-0.2) Segmented Neutrophils % 61 % (35-66) Band Neutrophils % 12 % (0-9) Lymphocytes % 24 % (24-48) Monocytes % 2 % (0-10) Eosinophils % 1 % (0-5) Platelet Estimate Adequate (ADEQUATE) Prothrombin Time 12.9 SEC (11.7-14.0) Prothromb Time International Ratio 1.0 (0.8-1.1) Activated Partial Thromboplast Time 28 SEC (24-38) Sodium Level 137 mmol/L (136-145) 139 mmol/L (136-145) Potassium Level 4.0 mmol/L (3.5-5.1) 3.7 mmol/L (3.5-5.1) Chloride Level 102 mmol/L (98-107) 106 mmol/L (98-107) Carbon Dioxide Level 27 mmol/L (21-32) 25 mmol/L (21-32) Anion Gap 8 (6-14) 8 (6-14) Blood Urea Nitrogen 20 mg/dL (7-20) 10 mg/dL (7-20) Creatinine 1.2 mg/dL (0.6-1.0) 0.8 mg/dL (0.6-1.0) Estimated GFR (Cockcroft-Gault) 43.7 69.6 BUN/Creatinine Ratio 17 (6-20) Glucose Level 137 mg/dL (70-99) 114 mg/dL (70-99) Calcium Level 8.5 mg/dL (8.5-10.1) 7.5 mg/dL (8.5-10.1) Magnesium Level 1.8 mg/dL (1.8-2.4) Total Bilirubin 0.5 mg/dL (0.2-1.0) Aspartate Amino Transf (AST/SGOT) 14 U/L (15-37) Alanine Aminotransferase (ALT/SGPT) 17 U/L (14-59) Alkaline Phosphatase 50 U/L (46-116) Creatine Kinase 19 U/L (26-192) Total Protein 6.9 g/dL (6.4-8.2) Albumin 3.1 g/dL (3.4-5.0) Albumin/Globulin Ratio 0.8 (1.0-1.7) Ethyl Alcohol Level < 10 mg/dL (0-10) Urine Collection Type Unknown Urine Color Yellow Urine Clarity Clear Urine pH 6.0 Urine Specific [place] 1.020 Urine Protein Negative mg/dL (NEG-TRACE) Urine Glucose (UA) Negative mg/dL (NEG) Urine Ketones (Stick) Negative mg/dL (NEG) Urine Blood Negative (NEG) Urine Nitrite Negative (NEG) Urine Bilirubin Negative (NEG) Urine Urobilinogen Dipstick 0.2 mg/dL (0.2 mg/dL) Urine Leukocyte Esterase Negative (NEG) Urine RBC 0 /HPF (0-2) Urine WBC 0 /HPF (0-4) Urine Squamous Epithelial Cells Few /LPF Urine Bacteria 0 /HPF (0-FEW) Urine Hyaline Casts Occasional /HPF Urine Mucus Mod /LPF Urine Opiates Screen Pos (NEG) Urine Methadone Screen Neg (NEG) Urine Barbiturates Neg (NEG) Urine Phencyclidine Screen Neg (NEG) Urine Amphetamine/Methamphetamine Neg (NEG) Urine Benzodiazepines Screen Neg (NEG) Urine Cocaine Screen Neg (NEG) Urine Cannabinoids Screen Neg (NEG) Urine Ethyl Alcohol Neg (NEG) Laboratory Tests Test 10/07/16 04:00 White Blood Count 19.0 x10^3/uL (4.0-11.0) Red Blood Count 3.12 x10^6/uL (3.50-5.40) Hemoglobin 9.6 g/dL (12.0-15.5) Hematocrit 28.3 % (36.0-47.0) Mean Corpuscular Volume 90 fL (79-100) Mean Corpuscular Hemoglobin 31 pg (25-35) Mean Corpuscular Hemoglobin Concent 34 g/dL (31-37) Red Cell Distribution Width 12.6 % (11.5-14.5) Platelet Count 205 x10^3/uL (140-400) Neutrophils (%) (Auto) 64 % (31-73) Lymphocytes (%) (Auto) 28 % (24-48) Monocytes (%) (Auto) 7 % (0-9) Eosinophils (%) (Auto) 1 % (0-3) Basophils (%) (Auto) 0 % (0-3) Neutrophils # (Auto) 12.1 x10^3uL (1.8-7.7) Lymphocytes # (Auto) 5.3 x10^3/uL (1.0-4.8) Monocytes # (Auto) 1.4 x10^3/uL (0.0-1.1) Eosinophils # (Auto) 0.1 x10^3/uL (0.0-0.7) Basophils # (Auto) 0.0 x10^3/uL (0.0-0.2) Sodium Level 139 mmol/L (136-145) Potassium Level 3.7 mmol/L (3.5-5.1) Chloride Level 106 mmol/L (98-107) Carbon Dioxide Level 25 mmol/L (21-32) Anion Gap 8 (6-14) Blood Urea Nitrogen 10 mg/dL (7-20) Creatinine 0.8 mg/dL (0.6-1.0) Estimated GFR (Cockcroft-Gault) 69.6 Glucose Level 114 mg/dL (70-99) Calcium Level 7.5 mg/dL (8.5-10.1) Assessment/Plan Assessment/Plan Abd pain- with abnl Ct scan and rectal bleeding, most likely ischemic colitis Plan medical therapy with fluids/analgesics, antibiotics serial labs consider colonoscopy if bleeding persists/cultures are unrevealing Full note dictated LEE BLANTON MD Oct 07, 2016 12:44
[2016-10-07 15:00] VITALS: BP 122/53
--- NOTE | 2016-10-07 16:39 | PDOC ---
PROGRESS NOTES Chief Complaint Chief Complaint Hematochezia Abd pain ASSESSMENT AND PLAN: 1. Colitis: susepcted ischemic (vs divericulitis): appreciate Dr Schulz's input. on cipro, flagyl. clinically improved, no BM today (per pt). remains NPO for now, clear liquids in AM if stable 2. Pain control: adequate; IV fentanyl PRN 3. Leukocytosis: reactive. sl improved. monitor 4. Anemia: prob combination of rehydration and GIB. monitor 5. ARF: 2/2 dehydration/vasomotor. resolved. 6. Prophylaxis: PPI, lovenox History of Present Illness History of Present Illness feels much better, asking for food Vitals Vitals Vital Signs Date Time Temp Pulse Resp B/P (MAP) Pulse Ox O2 Delivery O2 Flow Rate FiO2 10/07/16 15:00 98.2 82 18 122/53 (76) 96 Room Air 98.2 Physical Exam General: Alert, Oriented X3, Cooperative, No acute distress Heart: Regular rate Abdomen: Normal bowel sounds, Other (gen TTP, mild) Extremities: No clubbing, No edema Skin: No rashes Labs LABS Laboratory Tests Test 10/07/16 04:00 White Blood Count 19.0 x10^3/uL (4.0-11.0) Red Blood Count 3.12 x10^6/uL (3.50-5.40) Hemoglobin 9.6 g/dL (12.0-15.5) Hematocrit 28.3 % (36.0-47.0) Mean Corpuscular Volume 90 fL (79-100) Mean Corpuscular Hemoglobin 31 pg (25-35) Mean Corpuscular Hemoglobin Concent 34 g/dL (31-37) Red Cell Distribution Width 12.6 % (11.5-14.5) Platelet Count 205 x10^3/uL (140-400) Neutrophils (%) (Auto) 64 % (31-73) Lymphocytes (%) (Auto) 28 % (24-48) Monocytes (%) (Auto) 7 % (0-9) Eosinophils (%) (Auto) 1 % (0-3) Basophils (%) (Auto) 0 % (0-3) Neutrophils # (Auto) 12.1 x10^3uL (1.8-7.7) Lymphocytes # (Auto) 5.3 x10^3/uL (1.0-4.8) Monocytes # (Auto) 1.4 x10^3/uL (0.0-1.1) Eosinophils # (Auto) 0.1 x10^3/uL (0.0-0.7) Basophils # (Auto) 0.0 x10^3/uL (0.0-0.2) Sodium Level 139 mmol/L (136-145) Potassium Level 3.7 mmol/L (3.5-5.1) Chloride Level 106 mmol/L (98-107) Carbon Dioxide Level 25 mmol/L (21-32) Anion Gap 8 (6-14) Blood Urea Nitrogen 10 mg/dL (7-20) Creatinine 0.8 mg/dL (0.6-1.0) Estimated GFR (Cockcroft-Gault) 69.6 Glucose Level 114 mg/dL (70-99) Calcium Level 7.5 mg/dL (8.5-10.1) FABIANA LOPEZ MD Oct 07, 2016 16:39
[2016-10-07] MEDS: HYDROcodone/APAP 5/325MG 1 TAB TABLET PO PRN (18:01)
[2016-10-07] MEDS ORDERED: POTASSIUM CL 20MEQ-0.45% NACL 1,000 ML IV PRN (19:00)
[2016-10-07 19:05] VITALS: BP 96/41
[2016-10-07] MEDS: POTASSIUM CL 20MEQ-0.45% NACL 1,000 ML IV SCH (20:07)
[2016-10-07] MEDS: ZOLPIDEM 5 MG TABLET. PO PRN (21:16)
[2016-10-07] MEDS: MONTELUKAST SODIUM 10 MG TABLET. PO SCH (21:16)
[2016-10-07] MEDS: SIMVASTATIN 20 MG TABLET PO SCH (21:16)
[2016-10-08 03:57] VITALS: BP 136/84
--- NOTE | 2016-10-08 04:35 | CONS ---
DATE OF CONSULTATION: 10/07/2016 REASON FOR CONSULTATION: Left lower quadrant abdominal pain, rectal bleeding. HISTORY OF PRESENT ILLNESS: A 76-year-old female with past medical history significant for anxiety, depression, reflux, hyperlipidemia, hypertension, hypothyroidism and allergic rhinitis, is admitted to [facility] with a 1-day history of lower abdominal pain and cramping. This was subsequently followed by several loose stools, totaling 3 with bright red blood. She has had persistent nausea with continued pain. She has come to the hospital for further evaluation, care and treatment. PAST MEDICAL HISTORY: Anxiety, depression, reflux, hyperlipidemia, hypertension, hypothyroidism, allergic rhinitis. PAST SURGICAL HISTORY: Status post hysterectomy, tubal ligation. ALLERGIES: CODEINE. FAMILY AND SOCIAL HISTORY: Does not smoke or drink. REVIEW OF SYSTEMS: Per records. MEDICATIONS: Include lisinopril 20 mg daily, Lexapro 10 mg daily, Cipro ____ 400 mg q.12 hours, Synthroid 50 mcg daily, simvastatin 20 mg daily, metronidazole 500 mg IV q.12 hours, hydralazine 10 mg daily. Review of systems, as above. PHYSICAL EXAMINATION: GENERAL: Reveals a well-nourished, well-developed female. VITAL SIGNS: Temp is 98.3, pulse 86, respiratory rate is 18, blood pressure is 114/47. HEENT: Reveals a normocephalic, atraumatic head. Pupils and extraocular muscles not tested. Sclerae anicteric. NECK: Supple. LUNGS: Clear. CARDIOVASCULAR: Reveals S1, S2 without S3, S4 or appreciable murmur. ABDOMEN: Reveals a soft abdomen, normal bowel sounds, with left lower quadrant tenderness to deep palpation, without appreciable hepatosplenomegaly, some mild tenderness on the left side. EXTREMITIES: Reveals no cyanosis, clubbing or edema. LABORATORY STUDIES: Sodium 139, potassium 3.7, chloride 106, BUN 10, creatinine 0.8, glucose 114, calcium 7.5, magnesium 1.8, total bili 0.5, AST of 14, ALT of 17, alk phos of 50, creatinine kinase 19, total protein 6.9, albumin 3.1. Hemoglobin is 9.6, hematocrit 28.3, white count is 19.0, platelet count is 205,000. CT scan reveals colitis from the splenic flexure to the sigmoid colon and right middle lobe lung nodule possibly. IMPRESSION: Abdominal pain, diarrhea and abnormal CAT scan, most likely secondary to an ischemic colitis. Differential does include Clostridium difficile, new onset inflammatory bowel disease. We will therefore recommend stool cultures, IV antibiotics, fluid support, analgesics. Consider interval colonoscopy if stool cultures are negative and the bleeding should persist. I would like to thank Dr. Armstrong for allowing us to consult and participate in this patient's care. LEE BLANTON MD DR: CHER/david JOB#: [id number] / [id number] SHAYLA Rodriguez MD
[2016-10-08] MEDS: LEVOTHYROXINE 50 MCG TABLET PO SCH (05:50)
[2016-10-08 06:53] LABS: BASO # 0.1 x10^3/uL (0.0-0.2); BASO % 0 % (0-3); EOS % 1 % (0-3); HEMATOCRIT 27.1 % (36.0-47.0); LYMPH # 4.2 x10^3/uL (1.0-4.8); LYMPH % 31 % (24-48); MEAN CORPUSCULAR HEMOGLOBIN 30 pg (25-35); MEAN CORPUSCULAR HGB CONC 33 g/dL (31-37); MEAN CORPUSCULAR VOLUME 92 fL (79-100); MONO % 8 % (0-9); NEUT % 60 % (31-73); PLATELET COUNT 177 x10^3/uL (140-400); RED BLOOD COUNT 2.95 x10^6/uL (3.50-5.40); RED CELL DISTRIBUTION WIDTH 12.4 % (11.5-14.5); WHITE BLOOD COUNT 13.5 x10^3/uL (4.0-11.0)
[2016-10-08 07:00] VITALS: BP 119/64
[2016-10-08 07:15] LABS: ALBUMIN 2.5 g/dL (3.4-5.0); ALBUMIN/GLOBULIN RATIO 0.8 (1.0-1.7); CALCIUM 8.2 mg/dL (8.5-10.1); CREATININE 0.8 mg/dL (0.6-1.0); GFR 69.6; POTASSIUM 3.8 mmol/L (3.5-5.1); TOTAL BILIRUBIN 0.4 mg/dL (0.2-1.0); TOTAL PROTEIN 5.8 g/dL (6.4-8.2)
[2016-10-08] MEDS: ALBUTEROL SULFATE 2.5 MG/3 ML NEBU. NEB PRN ×2 (07:24→15:05)
[2016-10-08] MEDS: LISINOPRIL 20 MG TABLET PO SCH (08:29)
[2016-10-08] MEDS: ESCITALOPRAM 10 MG TABLET. PO SCH (08:29)
[2016-10-08] MEDS: POTASSIUM CL 20MEQ-0.45% NACL 1,000 ML IV SCH ×2 (08:30→22:20)
[2016-10-08] MEDS: CIPROFLOXACIN 200MG PREMIX 100 ML IV SCH ×2 (08:30→21:36)
[2016-10-08] MEDS: TRIAMCINOLONE ACETONIDE 0.1% TOPICAL OINTMENT 15GM TUBE. TP SCH ×2 (08:31→21:00)
[2016-10-08 11:05] VITALS: BP 131/64
--- NOTE | 2016-10-08 11:07 | PDOC ---
Subjective: Subjective: No stools/bleeding since the night before last. Would like to try drinking. Objective: Objective: Per RN - no bleeding. Vital Signs: Vital Signs Date Time Temp Pulse Resp B/P (MAP) Pulse Ox O2 Delivery O2 Flow Rate FiO2 10/08/16 08:29 84 119/64 10/08/16 08:00 Room Air 10/08/16 07:26 98 10/08/16 07:00 98.5 16 98.5 Labs: Laboratory Tests Test 10/08/16 05:25 White Blood Count 13.5 x10^3/uL Red Blood Count 2.95 x10^6/uL Hemoglobin 9.0 g/dL Hematocrit 27.1 % Mean Corpuscular Volume 92 fL Mean Corpuscular Hemoglobin 30 pg Mean Corpuscular Hemoglobin Concent 33 g/dL Red Cell Distribution Width 12.4 % Platelet Count 177 x10^3/uL Neutrophils (%) (Auto) 60 % Lymphocytes (%) (Auto) 31 % Monocytes (%) (Auto) 8 % Eosinophils (%) (Auto) 1 % Basophils (%) (Auto) 0 % Neutrophils # (Auto) 8.1 x10^3uL Lymphocytes # (Auto) 4.2 x10^3/uL Monocytes # (Auto) 1.0 x10^3/uL Eosinophils # (Auto) 0.2 x10^3/uL Basophils # (Auto) 0.1 x10^3/uL Sodium Level 139 mmol/L Potassium Level 3.8 mmol/L Chloride Level 106 mmol/L Carbon Dioxide Level 26 mmol/L Anion Gap 7 Blood Urea Nitrogen 7 mg/dL Creatinine 0.8 mg/dL Estimated GFR (Cockcroft-Gault) 69.6 BUN/Creatinine Ratio 9 Glucose Level 113 mg/dL Calcium Level 8.2 mg/dL Total Bilirubin 0.4 mg/dL Aspartate Amino Transf (AST/SGOT) 11 U/L Alanine Aminotransferase (ALT/SGPT) 12 U/L Alkaline Phosphatase 32 U/L Total Protein 5.8 g/dL Albumin 2.5 g/dL Albumin/Globulin Ratio 0.8 PE: GEN: NAD, up to chair watching tv LUNGS: clear HEART: RRR ABD: BS+, BLQ discomfort NEURO/PSYCH: A & O 3 A/P: Lower abd pain, bloody diarrhea, left-sided colitis on CT -no stools/bleeding x 24 hrs, still some lower pain -C Diff pending -- Try clears, d/w RN. LUCERO PACK Oct 08, 2016 11:07
--- NOTE | 2016-10-08 13:20 | PDOC ---
PROGRESS NOTES Chief Complaint Chief Complaint Hematochezia Abd pain ASSESSMENT AND PLAN: 1. Colitis: susepcted ischemic (vs divericulitis): appreciate Dr Schulz's input. on cipro, flagyl. clinically improved, no BM today (per pt). remains NPO for now, clear liquids in AM if stable 2. Pain control: adequate; IV fentanyl PRN 3. Leukocytosis: reactive. sl improved. monitor 4. Anemia: prob combination of rehydration and GIB. monitor 5. ARF: 2/2 dehydration/vasomotor. resolved. 6. Prophylaxis: PPI, lovenox History of Present Illness History of Present Illness feels much better, eating some , clears now, advance as elaina Vitals Vitals Vital Signs Date Time Temp Pulse Resp B/P (MAP) Pulse Ox O2 Delivery O2 Flow Rate FiO2 10/08/16 11:05 97.9 70 16 131/64 (86) 97 Room Air 97.9 Physical Exam General: Alert, Oriented X3, Cooperative, No acute distress Heart: Regular rate Abdomen: Normal bowel sounds, Other (gen TTP, mild) Extremities: No clubbing, No edema Skin: No rashes Labs LABS Laboratory Tests Test 10/08/16 05:25 White Blood Count 13.5 x10^3/uL (4.0-11.0) Red Blood Count 2.95 x10^6/uL (3.50-5.40) Hemoglobin 9.0 g/dL (12.0-15.5) Hematocrit 27.1 % (36.0-47.0) Mean Corpuscular Volume 92 fL (79-100) Mean Corpuscular Hemoglobin 30 pg (25-35) Mean Corpuscular Hemoglobin Concent 33 g/dL (31-37) Red Cell Distribution Width 12.4 % (11.5-14.5) Platelet Count 177 x10^3/uL (140-400) Neutrophils (%) (Auto) 60 % (31-73) Lymphocytes (%) (Auto) 31 % (24-48) Monocytes (%) (Auto) 8 % (0-9) Eosinophils (%) (Auto) 1 % (0-3) Basophils (%) (Auto) 0 % (0-3) Neutrophils # (Auto) 8.1 x10^3uL (1.8-7.7) Lymphocytes # (Auto) 4.2 x10^3/uL (1.0-4.8) Monocytes # (Auto) 1.0 x10^3/uL (0.0-1.1) Eosinophils # (Auto) 0.2 x10^3/uL (0.0-0.7) Basophils # (Auto) 0.1 x10^3/uL (0.0-0.2) Sodium Level 139 mmol/L (136-145) Potassium Level 3.8 mmol/L (3.5-5.1) Chloride Level 106 mmol/L (98-107) Carbon Dioxide Level 26 mmol/L (21-32) Anion Gap 7 (6-14) Blood Urea Nitrogen 7 mg/dL (7-20) Creatinine 0.8 mg/dL (0.6-1.0) Estimated GFR (Cockcroft-Gault) 69.6 BUN/Creatinine Ratio 9 (6-20) Glucose Level 113 mg/dL (70-99) Calcium Level 8.2 mg/dL (8.5-10.1) Total Bilirubin 0.4 mg/dL (0.2-1.0) Aspartate Amino Transf (AST/SGOT) 11 U/L (15-37) Alanine Aminotransferase (ALT/SGPT) 12 U/L (14-59) Alkaline Phosphatase 32 U/L (46-116) Total Protein 5.8 g/dL (6.4-8.2) Albumin 2.5 g/dL (3.4-5.0) Albumin/Globulin Ratio 0.8 (1.0-1.7) Review of Systems Review of Systems if able to cont to advance diet may be able to DC in am Assessment and Plan Assessmemt and Plan Problems Medical Problems: (1) Abdominal pain Status: Acute (2) Colitis Status: Acute (3) GI bleed Status: Acute (4) Leukocytosis Status: Acute Problems: Comment Review of Relevant I have reviewed the following items erika (where applicable) has been applied. Labs Laboratory Tests Test 10/07/16 04:00 10/08/16 05:25 White Blood Count 19.0 x10^3/uL (4.0-11.0) 13.5 x10^3/uL (4.0-11.0) Red Blood Count 3.12 x10^6/uL (3.50-5.40) 2.95 x10^6/uL (3.50-5.40) Hemoglobin 9.6 g/dL (12.0-15.5) 9.0 g/dL (12.0-15.5) Hematocrit 28.3 % (36.0-47.0) 27.1 % (36.0-47.0) Mean Corpuscular Volume 90 fL (79-100) 92 fL (79-100) Mean Corpuscular Hemoglobin 31 pg (25-35) 30 pg (25-35) Mean Corpuscular Hemoglobin Concent 34 g/dL (31-37) 33 g/dL (31-37) Red Cell Distribution Width 12.6 % (11.5-14.5) 12.4 % (11.5-14.5) Platelet Count 205 x10^3/uL (140-400) 177 x10^3/uL (140-400) Neutrophils (%) (Auto) 64 % (31-73) 60 % (31-73) Lymphocytes (%) (Auto) 28 % (24-48) 31 % (24-48) Monocytes (%) (Auto) 7 % (0-9) 8 % (0-9) Eosinophils (%) (Auto) 1 % (0-3) 1 % (0-3) Basophils (%) (Auto) 0 % (0-3) 0 % (0-3) Neutrophils # (Auto) 12.1 x10^3uL (1.8-7.7) 8.1 x10^3uL (1.8-7.7) Lymphocytes # (Auto) 5.3 x10^3/uL (1.0-4.8) 4.2 x10^3/uL (1.0-4.8) Monocytes # (Auto) 1.4 x10^3/uL (0.0-1.1) 1.0 x10^3/uL (0.0-1.1) Eosinophils # (Auto) 0.1 x10^3/uL (0.0-0.7) 0.2 x10^3/uL (0.0-0.7) Basophils # (Auto) 0.0 x10^3/uL (0.0-0.2) 0.1 x10^3/uL (0.0-0.2) Sodium Level 139 mmol/L (136-145) 139 mmol/L (136-145) Potassium Level 3.7 mmol/L (3.5-5.1) 3.8 mmol/L (3.5-5.1) Chloride Level 106 mmol/L (98-107) 106 mmol/L (98-107) Carbon Dioxide Level 25 mmol/L (21-32) 26 mmol/L (21-32) Anion Gap 8 (6-14) 7 (6-14) Blood Urea Nitrogen 10 mg/dL (7-20) 7 mg/dL (7-20) Creatinine 0.8 mg/dL (0.6-1.0) 0.8 mg/dL (0.6-1.0) Estimated GFR (Cockcroft-Gault) 69.6 69.6 Glucose Level 114 mg/dL (70-99) 113 mg/dL (70-99) Calcium Level 7.5 mg/dL (8.5-10.1) 8.2 mg/dL (8.5-10.1) BUN/Creatinine Ratio 9 (6-20) Total Bilirubin 0.4 mg/dL (0.2-1.0) Aspartate Amino Transf (AST/SGOT) 11 U/L (15-37) Alanine Aminotransferase (ALT/SGPT) 12 U/L (14-59) Alkaline Phosphatase 32 U/L (46-116) Total Protein 5.8 g/dL (6.4-8.2) Albumin 2.5 g/dL (3.4-5.0) Albumin/Globulin Ratio 0.8 (1.0-1.7) Laboratory Tests Test 10/08/16 05:25 White Blood Count 13.5 x10^3/uL (4.0-11.0) Red Blood Count 2.95 x10^6/uL (3.50-5.40) Hemoglobin 9.0 g/dL (12.0-15.5) Hematocrit 27.1 % (36.0-47.0) Mean Corpuscular Volume 92 fL (79-100) Mean Corpuscular Hemoglobin 30 pg (25-35) Mean Corpuscular Hemoglobin Concent 33 g/dL (31-37) Red Cell Distribution Width 12.4 % (11.5-14.5) Platelet Count 177 x10^3/uL (140-400) Neutrophils (%) (Auto) 60 % (31-73) Lymphocytes (%) (Auto) 31 % (24-48) Monocytes (%) (Auto) 8 % (0-9) Eosinophils (%) (Auto) 1 % (0-3) Basophils (%) (Auto) 0 % (0-3) Neutrophils # (Auto) 8.1 x10^3uL (1.8-7.7) Lymphocytes # (Auto) 4.2 x10^3/uL (1.0-4.8) Monocytes # (Auto) 1.0 x10^3/uL (0.0-1.1) Eosinophils # (Auto) 0.2 x10^3/uL (0.0-0.7) Basophils # (Auto) 0.1 x10^3/uL (0.0-0.2) Sodium Level 139 mmol/L (136-145) Potassium Level 3.8 mmol/L (3.5-5.1) Chloride Level 106 mmol/L (98-107) Carbon Dioxide Level 26 mmol/L (21-32) Anion Gap 7 (6-14) Blood Urea Nitrogen 7 mg/dL (7-20) Creatinine 0.8 mg/dL (0.6-1.0) Estimated GFR (Cockcroft-Gault) 69.6 BUN/Creatinine Ratio 9 (6-20) Glucose Level 113 mg/dL (70-99) Calcium Level 8.2 mg/dL (8.5-10.1) Total Bilirubin 0.4 mg/dL (0.2-1.0) Aspartate Amino Transf (AST/SGOT) 11 U/L (15-37) Alanine Aminotransferase (ALT/SGPT) 12 U/L (14-59) Alkaline Phosphatase 32 U/L (46-116) Total Protein 5.8 g/dL (6.4-8.2) Albumin 2.5 g/dL (3.4-5.0) Albumin/Globulin Ratio 0.8 (1.0-1.7) Medications Current Medications Ondansetron HCl (Zofran) 8 mg 1X ONCE IV Last administered on 10/06/16t 11:02 ; Start 10/06/16 at 10:45; Stop 10/06/16 at 10:46; Status DC Sodium Chloride 1,000 ml @ 1,000 mls/hr 1X ONCE IV Last administered on 11:03; Start 10/06/16 at 10:45; Stop 10/06/16 at 11:44; Status DC Pantoprazole Sodium (Protonix Vial) 40 mg 1X ONCE IVP Last administered on 11:02; Start 10/06/16 at 10:45; Stop 10/06/16 at 10:46; Status DC Fentanyl Citrate (Fentanyl 2ml Vial) 50 mcg 1X ONCE IV Last administered on 11:02; Start 10/06/16 at 10:45; Stop 10/06/16 at 10:46; Status DC Iohexol (Omnipaque 300 Mg/ml) 75 ml 1X ONCE IV Last administered on 10/06/16 11:36; Start 10/06/16 at 11:00; Stop 10/06/16 at 11:01; Status DC Info (Do NOT chart on this entry -- for MONITORING) 1 each PRN DAILY PRN MC SEE COMMENTS; Start 10/06/16 at 11:00; Stop 10/08/16 at 10:59; Status DC Ondansetron HCl (Zofran) 4 mg PRN Q8HRS PRN IV NAUSEA/VOMITING; Start 10/06/16 at 13:30; Stop 10/06/16 at 17:12; Status DC Fentanyl Citrate (Fentanyl 2ml Vial) 50 mcg PRN Q2HR PRN IV PAIN; Start at 13:30; Stop 10/07/16 at 13:29; Status DC Metronidazole 100 ml @ 100 mls/hr 1X ONCE IV Last administered on 10/06/16 13:31; Start 10/06/16 at 13:30; Stop 10/06/16 at 14:29; Status DC Levofloxacin/ Dextrose 150 ml @ 100 mls/hr 1X ONCE IV Last administered on 13:31; Start 10/06/16 at 13:30; Stop 10/06/16 at 14:59; Status DC Sodium Chloride 1,000 ml @ 125 mls/hr 1X ONCE IV Last administered on 15:29; Start 10/06/16 at 13:45; Stop 10/06/16 at 21:44; Status DC Ciprofloxacin Lactate 100 ml @ 100 mls/hr Q12HR IV Last administered on 08:30; Start 10/07/16 at 09:00 Metronidazole 100 ml @ 100 mls/hr Q12HR IV Last administered on 10/08/16 08: 30; Start 10/06/16 at 21:00 Acetaminophen (Tylenol) 325 mg PRN Q6HRS PRN PO MILD PAIN / TEMP Last administered on 10/08/16 10:57; Start 10/06/16 at 17:00 Acetaminophen/ Hydrocodone Bitart (Lortab 5/325) 1 tab PRN Q6HRS PRN PO MODERATE TO SEVERE PAIN Last administered on 10/07/16 18:01; Start 10/06/16 at 17:00 Hydralazine HCl (Apresoline) 10 mg PRN Q4HRS PRN IVP ELEVATED BP, SEE COMMENTS ; Start 10/06/16 at 17:00 Ondansetron HCl (Zofran) 4 mg PRN Q8HRS PRN IV NAUSEA/VOMITING; Start 10/06/16 at 17:00 Albuterol Sulfate (Ventolin Neb Soln) 2.5 mg PRN Q4HRS PRN NEB SHORTNESS OF BREATH Last administered on 10/08/16 07:24; Start 10/06/16 at 17:00 Escitalopram Oxalate (Lexapro) 10 mg DAILY PO Last administered on 10/08/16 08 :29; Start 10/07/16 at 09:00 Levothyroxine Sodium (Synthroid) 50 mcg DAILY07 PO Last administered on 05:50; Start 10/07/16 at 07:00 Lisinopril (Prinivil) 20 mg DAILY PO Last administered on 10/08/16 08:29; Start 10/07/16 at 09:00 Montelukast Sodium (Singulair) 10 mg HS PO Last administered on 10/07/16 21:16 ; Start 10/06/16 at 21:00 Simvastatin (Zocor) 20 mg QHS PO Last administered on 10/07/16 21:16; Start at 21:00 Triamcinolone Acetonide (Kenalog) 1 scarlett BID TP ; Start 10/06/16 at 21:00 Zolpidem Tartrate (Ambien) 5 mg PRN QHS PRN PO INSOMNIA Last administered on 21:16; Start 10/06/16 at 23:00 Potassium Chloride/Sodium Chloride 1,000 ml @ 75 mls/hr [id number] PRN IV ,; Start 10/07/16 at 19:00; Stop 10/07/16 at 19:24; Status DC Potassium Chloride/Sodium Chloride 1,000 ml @ 75 mls/hr [id number] IV Last administered on 10/08/16 08:30; Start 10/07/16 at 19:30 Active Scripts Active Triamcinolone Acetonide 0.1% Oint (Triamcinolone Acetonide) 15 Gm Oint...g. 1 Scarlett TP BID MIX WITH EUCERIN DIRECTED BY PHYSICIAN Prednisone 20 Mg Tablet 40 Mg PO DAILY Lisinopril 20 Mg Tablet 1 Tab PO DAILY Reported Ambien (Zolpidem Tartrate) 5 Mg Tablet 1 Tab PO QHS Escitalopram Oxalate 10 Mg Tablet 1 Tab PO DAILY Montelukast Sodium Tablet (Montelukast Sodium) 10 Mg Tablet 10 Mg PO HS Hydrocodone-Apap 5-325 (Hydrocodone Bit/Acetaminophen) 1 Each Tablet 1 Tab PO PRN Q8HRS PRN Meloxicam 15 Mg Tablet 1 Tab PO DAILY Levothyroxine Sodium 50 Mcg Tablet 1 Tab PO DAILY Simvastatin 20 Mg Tablet 1 Tab PO QHS Vitals/I & O Vital Sign - Last 24 Hours 10/07/16 10/07/16 10/07/16 10/07/16 15:00 18:01 19:01 19:05 Temp 98.2 98.4 98.2 98.4 Pulse 82 76 Resp 18 18 20 20 B/P (MAP) 122/53 (76) 96/41 (59) Pulse Ox 96 96 97 O2 Delivery Room Air Room Air Room Air Room Air 10/07/16 10/07/16 10/07/16 10/08/16 20:00 20:43 23:10 03:57 Temp 98.1 98.1 Pulse 83 Resp 20 B/P (MAP) 136/84 (101) Pulse Ox 97 O2 Delivery Room Air Room Air Room Air Room Air 10/08/16 10/08/16 10/08/16 10/08/16 07:00 07:26 08:00 08:29 Temp 98.5 98.5 Pulse 84 84 Resp 16 B/P (MAP) 119/64 (82) 119/64 Pulse Ox 100 98 O2 Delivery Room Air Room Air Room Air 10/08/16 11:05 Temp 97.9 97.9 Pulse 70 Resp 16 B/P (MAP) 131/64 (86) Pulse Ox 97 O2 Delivery Room Air Intake and Output 10/07/16 10/07/16 10/08/16 15:00 23:00 07:00 Intake Total 300 ml Output Total 550 ml 153 ml 600 ml Balance -550 ml 147 ml -600 ml BENNY YOST MD Oct 08, 2016 13:20
[2016-10-08 15:07] VITALS: BP 156/77
[2016-10-08 19:00] VITALS: BP 110/52
[2016-10-08] MEDS: HYDROcodone/APAP 5/325MG 1 TAB TABLET PO PRN (19:23)
[2016-10-08] MEDS: ZOLPIDEM 5 MG TABLET. PO PRN (21:36)
[2016-10-08] MEDS: SIMVASTATIN 20 MG TABLET PO SCH (21:36)
[2016-10-08] MEDS: MONTELUKAST SODIUM 10 MG TABLET. PO SCH (21:36)
[2016-10-08 23:00] VITALS: BP 118/59
[2016-10-09 03:00] VITALS: BP 128/61
[2016-10-09 07:00] VITALS: BP 144/75
[2016-10-09] MEDS: ALBUTEROL SULFATE 2.5 MG/3 ML NEBU. NEB PRN ×2 (07:14→11:45)
[2016-10-09] MEDS: LEVOTHYROXINE 50 MCG TABLET PO SCH (07:31)
[2016-10-09] MEDS: ESCITALOPRAM 10 MG TABLET. PO SCH (08:41)
[2016-10-09] MEDS: CIPROFLOXACIN 200MG PREMIX 100 ML IV SCH (08:41)
[2016-10-09] MEDS: LISINOPRIL 20 MG TABLET PO SCH (08:42)
[2016-10-09] MEDS: TRIAMCINOLONE ACETONIDE 0.1% TOPICAL OINTMENT 15GM TUBE. TP SCH (09:00)
[2016-10-09 10:44] VITALS: BP 138/65
[2016-10-09] MEDS: POTASSIUM CL 20MEQ-0.45% NACL 1,000 ML IV SCH (11:51)
[2016-10-09 12:02] LABS: HEMATOCRIT 28.3 % (36.0-47.0); HEMOGLOBIN 9.6 g/dL (12.0-15.5); RED BLOOD COUNT 3.11 x10^6/uL (3.50-5.40); RED CELL DISTRIBUTION WIDTH 12.3 % (11.5-14.5); WHITE BLOOD COUNT 10.8 x10^3/uL (4.0-11.0)
--- NOTE | 2016-10-09 12:02 | PDOC ---
Subjective: Subjective: Denies bleeding and pain, would like to DC. Objective: Objective: Reviewed chart - stooling w/o blood. Vital Signs: Vital Signs Date Time Temp Pulse Resp B/P (MAP) Pulse Ox O2 Delivery O2 Flow Rate FiO2 10/09/16 11:45 Room Air 10/09/16 10:44 97.5 71 18 138/65 (89) 96 97.5 PE: GEN: NAD, sitting on edge of bed LUNGS: clear HEART: S1S2 ABD: NABS, S/ND/NT NEURO/PSYCH: A & O 3 A/P: Lower abd pain, bloody diarrhea, left-sided colitis on CT -no stools/bleeding ~48 hours, no labs today -C Diff neg -on IV atbx -- Seems resolving ischemic colitis. ADAT, look toward DC if Hgb stable. Consider outpt colonoscopy. LUCERO PACK Oct 09, 2016 12:02
[2016-10-09] MEDS ORDERED: METR500T PO (12:18)
[2016-10-09 14:50] VITALS: BP 113/46
--- NOTE | 2016-10-09 15:11 | PDOC3 ---
Discharge Summary Visit Information Date of Admission: Oct 06, 2016 Date of Discharge: Oct 09, 2016 Admitting Diagnosis: abd pain and hematochezia Final Diagnosis 1. Colitis: susepcted ischemic (vs divericulitis): appreciate Dr Schulz's input. on cipro, flagyl. clinically improved, no BM today (per pt). remains NPO for now, clear liquids in AM if stable 2. Pain control: adequate; IV fentanyl PRN 3. Leukocytosis: reactive. sl improved. monitor 4. Anemia: prob combination of rehydration and GIB. monitor 5. ARF: 2/2 dehydration/vasomotor. resolved. 6. Prophylaxis: PPI, lovenox Problems Medical Problems: (1) Abdominal pain Status: Acute (2) Colitis Status: Acute (3) GI bleed Status: Acute (4) Leukocytosis Status: Acute Brief Hospital Course Allergies Allergies Coded Allergies Type Severity Reaction Last Updated Verified codeine Allergy Intermediate Nausea and Vomiting 09/27/16 Yes Vital Signs Vital Signs Date Time Temp Pulse Resp B/P (MAP) Pulse Ox O2 Delivery O2 Flow Rate FiO2 10/09/16 14:50 97.7 72 18 113/46 (68) 96 Room Air 97.7 Lab Results Laboratory Tests Test 10/08/16 05:25 10/09/16 11:45 White Blood Count 13.5 x10^3/uL (4.0-11.0) 10.8 x10^3/uL (4.0-11.0) Red Blood Count 2.95 x10^6/uL (3.50-5.40) 3.11 x10^6/uL (3.50-5.40) Hemoglobin 9.0 g/dL (12.0-15.5) 9.6 g/dL (12.0-15.5) Hematocrit 27.1 % (36.0-47.0) 28.3 % (36.0-47.0) Mean Corpuscular Volume 92 fL (79-100) 91 fL (79-100) Mean Corpuscular Hemoglobin 30 pg (25-35) 31 pg (25-35) Mean Corpuscular Hemoglobin Concent 33 g/dL (31-37) 34 g/dL (31-37) Red Cell Distribution Width 12.4 % (11.5-14.5) 12.3 % (11.5-14.5) Platelet Count 177 x10^3/uL (140-400) 197 x10^3/uL (140-400) Neutrophils (%) (Auto) 60 % (31-73) Lymphocytes (%) (Auto) 31 % (24-48) Monocytes (%) (Auto) 8 % (0-9) Eosinophils (%) (Auto) 1 % (0-3) Basophils (%) (Auto) 0 % (0-3) Neutrophils # (Auto) 8.1 x10^3uL (1.8-7.7) Lymphocytes # (Auto) 4.2 x10^3/uL (1.0-4.8) Monocytes # (Auto) 1.0 x10^3/uL (0.0-1.1) Eosinophils # (Auto) 0.2 x10^3/uL (0.0-0.7) Basophils # (Auto) 0.1 x10^3/uL (0.0-0.2) Sodium Level 139 mmol/L (136-145) Potassium Level 3.8 mmol/L (3.5-5.1) Chloride Level 106 mmol/L (98-107) Carbon Dioxide Level 26 mmol/L (21-32) Anion Gap 7 (6-14) Blood Urea Nitrogen 7 mg/dL (7-20) Creatinine 0.8 mg/dL (0.6-1.0) Estimated GFR (Cockcroft-Gault) 69.6 BUN/Creatinine Ratio 9 (6-20) Glucose Level 113 mg/dL (70-99) Calcium Level 8.2 mg/dL (8.5-10.1) Total Bilirubin 0.4 mg/dL (0.2-1.0) Aspartate Amino Transf (AST/SGOT) 11 U/L (15-37) Alanine Aminotransferase (ALT/SGPT) 12 U/L (14-59) Alkaline Phosphatase 32 U/L (46-116) Total Protein 5.8 g/dL (6.4-8.2) Albumin 2.5 g/dL (3.4-5.0) Albumin/Globulin Ratio 0.8 (1.0-1.7) Laboratory Tests Test 10/09/16 11:45 White Blood Count 10.8 x10^3/uL (4.0-11.0) Red Blood Count 3.11 x10^6/uL (3.50-5.40) Hemoglobin 9.6 g/dL (12.0-15.5) Hematocrit 28.3 % (36.0-47.0) Mean Corpuscular Volume 91 fL (79-100) Mean Corpuscular Hemoglobin 31 pg (25-35) Mean Corpuscular Hemoglobin Concent 34 g/dL (31-37) Red Cell Distribution Width 12.3 % (11.5-14.5) Platelet Count 197 x10^3/uL (140-400) Brief Hospital Course Ms. Hubbard is a 76 old admit with abd pain and blood stool. GI consult, thought to be mild ischemic colitis, but IV abx given, symptoms improved over days diet advanced, tolerated well, normal stool, good PO intake f/u GI Discharge Information Condition at Discharge: Improved Follow Up: Weeks Disposition/Orders: D/C to Home Scheduled Escitalopram Oxalate (Escitalopram Oxalate), 1 TAB PO DAILY, (Reported) Levothyroxine Sodium (Levothyroxine Sodium), 1 TAB PO DAILY, (Reported) Lisinopril (Lisinopril), 1 TAB PO DAILY Meloxicam (Meloxicam), 1 TAB PO DAILY, (Reported) Metronidazole (Flagyl), 500 MG PO TID Montelukast Sodium (Montelukast Sodium Tablet), 10 MG PO HS, (Reported) Prednisone (Prednisone), 40 MG PO DAILY Simvastatin (Simvastatin), 1 TAB PO QHS, (Reported) Triamcinolone Acetonide (Triamcinolone Acetonide 0.1% Oint), 1 LOWELL TP BID Zolpidem Tartrate (Ambien), 1 TAB PO QHS, (Reported) Scheduled PRN Hydrocodone Bit/Acetaminophen (Hydrocodone-Apap 5-325 ), 1 TAB PO PRN Q8HRS PRN for PAIN, (Reported) Patient Instructions Patient Instructions time > 30 min BENNY YOST MD Oct 09, 2016 15:11
== END 2016-10-09 15:17 | disposition home or self-care (01) | DRG 871 ==
LOC: ER 10:24 → 5 SOUTH 13:21
PROVIDERS: ADMIT Internal Medicine; ATTEND Internal Medicine
DX: A41.9 Sepsis, unspecified organism (principal); N17.0 Acute kidney failure with tubular necrosis; K55.9 Vascular disorder of intestine, unspecified; K57.92 Diverticulitis of intestine, part unspecified, without perforation or abscess without bleeding; D72.828 Other elevated white blood cell count; D64.9 Anemia, unspecified; E03.9 Hypothyroidism, unspecified; E78.00 Pure hypercholesterolemia, unspecified; E78.5 Hyperlipidemia, unspecified; E86.0 Dehydration; F41.9 Anxiety disorder, unspecified; I10 Essential (primary) hypertension; K21.9 Gastro-esophageal reflux disease without esophagitis; F32.9 Major depressive disorder, single episode, unspecified; J30.2 Other seasonal allergic rhinitis; Z98.51 Tubal ligation status; Z90.710 Acquired absence of both cervix and uterus
CPT/HCPCS: 36415; 74177; 80048; 80053; 81001; 82274; 82550; 83735; 85007; 85027; 85610; 85730; 87324; 94250; 94640; 94760; 96361; 96374; 96375; C9113; G0480; G0481; J0744; J1956; J2405; J3010; J3490; J7030; Q9967; 92610; 99285-25

== ENCOUNTER 2016-11-18 07:31 | Inpatient (IN) | payer MEDICARE ==
[~2016-11-18] VITALS: Ht 167.6 cm; Wt 72.6 kg
[~2016-11-18 07:31] MED LIST changes: +ESCITALOPRAM OX10 MG PO; +HYDR-2758 PO; +LEVO50TA5 PO; +MELO15TA23 PO; +METR500T PO; +MONT10TA9 PO; +SIMV20TA3 PO; +ZOLP5TAB PO
[2016-11-18 08:05] LABS: BASO # 0.1 x10^3/uL (0.0-0.2); BASO % 1 % (0-3); EOS % 2 % (0-3); HEMATOCRIT 36.3 % (36.0-47.0); LYMPH # 4.8 x10^3/uL (1.0-4.8); LYMPH % 38 % (24-48); MEAN CORPUSCULAR HEMOGLOBIN 30 pg (25-35); MEAN CORPUSCULAR HGB CONC 33 g/dL (31-37); MEAN CORPUSCULAR VOLUME 91 fL (79-100); MONO % 8 % (0-9); NEUT % 52 % (31-73); PLATELET COUNT 232 x10^3/uL (140-400); RED CELL DISTRIBUTION WIDTH 12.7 % (11.5-14.5); WHITE BLOOD COUNT 12.7 x10^3/uL (4.0-11.0)
[2016-11-18 08:11] LABS: BILIRUBIN,URINE NEGATIVE (NEG); GLUCOSE,URINE NEGATIVE (NEG); NITRITE,URINE NEGATIVE (NEG); PROTEIN,URINE NEGATIVE (NEG-TRACE); UROBILINOGEN,URINE 0.2 mg/dL (0.2 mg/dL)
--- NOTE | 2016-11-18 08:17 | ED.ADGEN ---
Past Medical History Past Medical History: Anxiety, Depression, GERD, High Cholesterol, Hypertension , Hypothyroid, Other Additional Past Medical Histor: seasonal allergies Past Surgical History: Hysterectomy, Tubal ligation Alcohol Use: None Drug Use: None Adult General Chief Complaint Chief Complaint: ALTERED MENTAL STATUS HPI HPI Patient is a 76 year old woman, history of hypertension, hypercholesterolemia, hypothyroidism, GERD, anxiety, who presents to the emergency department from her nursing facility with report of altered mental status. Per report of nursing facility and family, who were not present in the ED, patient has been saying "tap, tap, tap" repetitively, is generally a and O 3, currently cannot state name, location or time. No fevers, injuries, or changes reported. Patient states that she has no complaints, and is following commands, but states "tap, tap, tap" continuously throughout her conversation. Review of Systems Review of Systems Constitutional: Denies fever or chills. [] Eyes: Denies change in visual acuity. [] HENT: Denies nasal congestion or sore throat. [] Respiratory: Denies cough or shortness of breath. [] Cardiovascular: Denies chest pain or edema. [] GI: Denies abdominal pain, nausea, vomiting, bloody stools or diarrhea. [] : Denies dysuria. [] Musculoskeletal: Denies back pain or joint pain. [] Integument: Denies rash. [] Neurologic: Denies headache, focal weakness or sensory changes. [] Endocrine: Denies polyuria or polydipsia. [] Lymphatic: Denies swollen glands. [] Psychiatric: Denies depression or anxiety. [] Patient denies all complaints, is a limited historian due to complaint. Allergies Allergies Allergies Coded Allergies Type Severity Reaction Last Updated Verified codeine Allergy Intermediate Nausea and Vomiting 09/27/16 Yes Physical Exam Physical Exam Constitutional: Well developed, well nourished, no acute distress, non-toxic appearance. [] HENT: Normocephalic, atraumatic, bilateral external ears normal, oropharynx moist, no oral exudates, nose normal. [] Eyes: PERRLA, EOMI, conjunctiva normal, no discharge. [] Neck: Normal range of motion, no tenderness, supple, no stridor. [] Cardiovascular:Heart rate regular rhythm, no murmur, S1, S2, rubs or gallops. [] Lungs & Thorax: Bilateral breath sounds clear to auscultation, no wheezing, rhonchi, rales. No chest wall crepitus or tenderness. [] Abdomen: Bowel sounds normal, soft, no tenderness, , no rebound, rigidity, no guarding, no masses, no pulsatile masses. [] Skin: Warm, dry, no erythema, no rash. [] Back: No tenderness, no CVA tenderness. [] Extremities: No tenderness, no cyanosis, no clubbing, ROM intact, no edema. Negative Homans sign. [] Neurologic: Patient is awake and alert, following some commands, stating "tap, tap, tap", is moving upper extremities, generally walks with a walker. Psychologic: Affect normal, judgement normal, mood normal. [] Current Patient Data Vital Signs Vital Signs Date Time Temp Pulse Resp B/P (MAP) Pulse Ox O2 Delivery O2 Flow Rate FiO2 11/18/16 09:00 62 28 145/86 (105) 96 11/18/16 07:31 98.3 Room Air 98.3 Lab Values Laboratory Tests Test 11/18/16 07:40 11/18/16 08:00 White Blood Count 12.7 x10^3/uL (4.0-11.0) H Red Blood Count 4.00 x10^6/uL (3.50-5.40) Hemoglobin 12.0 g/dL (12.0-15.5) Hematocrit 36.3 % (36.0-47.0) Mean Corpuscular Volume 91 fL (79-100) Mean Corpuscular Hemoglobin 30 pg (25-35) Mean Corpuscular Hemoglobin Concent 33 g/dL (31-37) Red Cell Distribution Width 12.7 % (11.5-14.5) Platelet Count 232 x10^3/uL (140-400) Neutrophils (%) (Auto) 52 % (31-73) Lymphocytes (%) (Auto) 38 % (24-48) Monocytes (%) (Auto) 8 % (0-9) Eosinophils (%) (Auto) 2 % (0-3) Basophils (%) (Auto) 1 % (0-3) Neutrophils # (Auto) 6.6 x10^3uL (1.8-7.7) Lymphocytes # (Auto) 4.8 x10^3/uL (1.0-4.8) Monocytes # (Auto) 1.0 x10^3/uL (0.0-1.1) Eosinophils # (Auto) 0.2 x10^3/uL (0.0-0.7) Basophils # (Auto) 0.1 x10^3/uL (0.0-0.2) Sodium Level 144 mmol/L (136-145) Potassium Level 4.6 mmol/L (3.5-5.1) Chloride Level 107 mmol/L (98-107) Carbon Dioxide Level 28 mmol/L (21-32) Anion Gap 9 (6-14) Blood Urea Nitrogen 22 mg/dL (7-20) H Creatinine 0.9 mg/dL (0.6-1.0) Estimated GFR (Cockcroft-Gault) 60.7 BUN/Creatinine Ratio 24 (6-20) H Glucose Level 122 mg/dL (70-99) H Calcium Level 9.0 mg/dL (8.5-10.1) Total Bilirubin 0.3 mg/dL (0.2-1.0) Aspartate Amino Transferase (AST) 23 U/L (15-37) Alanine Aminotransferase (ALT) 19 U/L (14-59) Alkaline Phosphatase 52 U/L (46-116) Troponin I Quantitative < 0.017 ng/mL (0.000-0.055) BT-Nek-M-Type Natriuretic Peptide 73 pg/mL (0-449) Total Protein 7.8 g/dL (6.4-8.2) Albumin 4.0 g/dL (3.4-5.0) Albumin/Globulin Ratio 1.1 (1.0-1.7) Thyroid Stimulating Hormone (TSH) 1.765 uIU/mL (0.358-3.74) Urine Collection Type U cath Urine Color Yellow Urine Clarity Clear Urine pH 6.0 Urine Specific [place] 1.020 Urine Protein Negative mg/dL (NEG-TRACE) Urine Glucose (UA) Negative mg/dL (NEG) Urine Ketones (Stick) Negative mg/dL (NEG) Urine Blood Negative (NEG) Urine Nitrite Negative (NEG) Urine Bilirubin Negative (NEG) Urine Urobilinogen Dipstick 0.2 mg/dL (0.2 mg/dL) Urine Leukocyte Esterase Negative (NEG) Urine RBC 1-2 /HPF (0-2) Urine WBC 1-4 /HPF (0-4) Urine Squamous Epithelial Cells Few /LPF Urine Renal Epithelial Cells Few /LPF Urine Amorphous Sediment Present /HPF Urine Bacteria Few /HPF (0-FEW) Urine Mucus Marked /LPF Urine Opiates Screen Pos (NEG) Urine Methadone Screen Neg (NEG) Urine Barbiturates Neg (NEG) Urine Phencyclidine Screen Neg (NEG) Urine Amphetamine/Methamphetamine Neg (NEG) Urine Benzodiazepines Screen Neg (NEG) Urine Cocaine Screen Neg (NEG) Urine Cannabinoids Screen Neg (NEG) Urine Ethyl Alcohol Neg (NEG) Laboratory Tests 11/18/16 07:40 Laboratory Tests 11/18/16 07:40 EKG EKG EC: Sinus rhythm, heart rate 64 bpm, left axis deviation, with baseline artifact noted, QTc of 464, ME of 154, QRS of 80, no ST elevations or depressions, abnormal ECG, does not meet STEMI criteria. As interpreted by me. Radiology/Procedures Radiology/Procedures [][place] [address] IMAGING REPORT Signed PATIENT: GERMÁN MIRZA ACCOUNT: [id number] : 1940 LOCATION: ER AGE: 76 SEX: F EXAM STATUS: REG ER ORD. PHYSICIAN: DARIUS SERNA DO REASON: AMS PROCEDURE: PORTABLE CHEST 1V Indication change in mental status. Suspect CVA. Protocol study. A single view of the chest was obtained. No prior imaging of the chest is available. The heart and pulmonary vessels and mediastinum appear normal. The lungs are clear. Bony structures appear grossly intact. IMPRESSION: No acute finding apparent in the chest DICTATED and SIGNED BY: VALERIE ALCARAZ MD DATE: 11/18/16 08 CC: DARIUS SERNA DO; STAN BROUSSARD MD ~ Impressions: [place] [id number] IMAGING REPORT Signed PATIENT: GERMÁN MIRZA ACCOUNT: [id number] : 1940 LOCATION: ER AGE: 76 SEX: F EXAM STATUS: REG ER ORD. PHYSICIAN: DARIUS SERNA DO REASON: AMS PROCEDURE: CT HEAD WO CONTRAST Indication change in mental status. Noncontrast images of the head were obtained. No prior imaging of the head is available. The calvarium appears unremarkable. The visualized paranasal sinuses appear normal. There is no subdural or epidural hematoma. There is underlying atrophy. There is some increased lucency in the deep white matter compatible with microvascular disease. No mass or midline shift is seen. There is no evidence of hemorrhage. No acute intracranial finding is seen. IMPRESSION: Chronic changes. No acute finding seen PQRS Compliance Statement: One or more of the following individualized dose reduction techniques were utilized for this examination: 1. Automated exposure control 2. Adjustment of the mA and/or kV according to patient size 3. Use of iterative reconstruction technique DICTATED and SIGNED BY: VALERIE ALACRAZ MD DATE: 11/18/16 0854 CC: DARIUS SERNA DO; STAN BROUSSARD MD ~ Course & Med Decision Making Course & Med Decision Making Pertinent Labs and Imaging studies reviewed. (See chart for details) Patient is oriented 1 at this time, as stated, has repetitive speech patterns, which are new for her. Laboratory studies not reveal any concerning findings, patient's CT of the brain is unremarkable. I did discuss findings as above with Dr. Tai of internal medicine, patient was accepted to her service as a full admission to the telemetry floor, and also with Dr. Simpson of neurology, concern for CVA remains high, unclear etiology of patient's altered mental status, we did attempt to obtain a stat MRI at this time, however at this point the magnet is currently down due to overnight power outage, we'll reattempt image once magnet is backup, patient's primary providers were notified of this finding. Patient remained stable on the monitor, without complaints in the ED, bridge orders entered per discussion, patient transferred before without issue. Dragon Disclaimer Dragon Disclaimer This electronic medical record was generated, in whole or in part, using a voice recognition dictation system. Departure Impression: Primary Impression: Mental status change Disposition: ADMITTED INPATIENT Admitting Physician: Other Condition: STABLE DARIUS SERNA DO Nov 18, 2016 08:17
[2016-11-18 08:18] LABS: BACTERIA,URINE FEW /HPF (0-FEW); SQUAMOUS EPITHELIAL CELL,UR FEW /LPF
[2016-11-18 08:22] LABS: CREATININE 0.9 mg/dL (0.6-1.0); GFR 60.7; POTASSIUM 4.6 mmol/L (3.5-5.1)
--- NOTE | 2016-11-18 08:26 | EKG ---
[facility] [address] [place] [address] Test Date: 2016-11-18 Test Time: 08:06:22 Pat Name: GERMÁN MIRZA Department: Room: Gender: F Nutrition Technician: : 1940 Requested By: DARIUS SERNA Order Number: [id number] Reading MD: Tristen Nicole Measurements Intervals [place] Rate: 64 P: 49 TN: 154 QRS: -10 QRSD: 80 T: 82 QT: 450 QTc: 464 Interpretive Statements SINUS RHYTHM NON-SPECIFIC ST/T CHANGES Electronically Signed On 11-22-2016 14:49:28 CDT by Tristen Nicole
[2016-11-18 08:28] LABS: ALBUMIN/GLOBULIN RATIO 1.1 (1.0-1.7); TOTAL BILIRUBIN 0.3 mg/dL (0.2-1.0); TOTAL PROTEIN 7.8 g/dL (6.4-8.2)
--- NOTE | 2016-11-18 08:46 | RAD ---
Indication change in mental status. Suspect CVA. Protocol study. A single view of the chest was obtained. No prior imaging of the chest is available. The heart and pulmonary vessels and mediastinum appear normal. The lungs are clear. Bony structures appear grossly intact. IMPRESSION: No acute finding apparent in the chest
--- NOTE | 2016-11-18 09:00 | RAD ---
Indication change in mental status. Noncontrast images of the head were obtained. No prior imaging of the head is available. The calvarium appears unremarkable. The visualized paranasal sinuses appear normal. There is no subdural or epidural hematoma. There is underlying atrophy. There is some increased lucency in the deep white matter compatible with microvascular disease. No mass or midline shift is seen. There is no evidence of hemorrhage. No acute intracranial finding is seen. IMPRESSION: Chronic changes. No acute finding seen PQRS Compliance Statement: One or more of the following individualized dose reduction techniques were utilized for this examination: 1. Automated exposure control 2. Adjustment of the mA and/or kV according to patient size 3. Use of iterative reconstruction technique
[2016-11-18 09:16] LABS: BARBITURATES NEG (NEG); BENZODIAZEPINES NEG (NEG); CANNABINOIDS NEG (NEG); COCAINE NEG (NEG); METHADONE NEG (NEG); OPIATES POS (NEG); PHENCYCLIDINE NEG (NEG)
[2016-11-18] MEDS ORDERED: ONDANSETRON PF 4 MG/2 ML VIAL. IV PRN (11:30)
[2016-11-18 12:53] VITALS: BP 103/55
[2016-11-18] MEDS: LEVOTHYROXINE 50 MCG TABLET PO SCH (14:00)
[2016-11-18] MEDS: LISINOPRIL 20 MG TABLET PO SCH (14:00)
[2016-11-18] MEDS: ENOXAPARIN 40 MG/0.4 ML SYRINGE. SQ SCH (14:00)
[2016-11-18 14:33] VITALS: BP 134/63
--- NOTE | 2016-11-18 14:57 | PDOC2 ---
NEUROLOGY CONSULT Date of Admission Date of Admission DATE: 11/18/16 TIME: 14:46 Reason for Consult Reason for Consult: IMPRESSION: Dysarthria, onset time unknown. Metabolic encephalopathy. Confusion. HTN HLD Hypothyroidism GERD RECOMMENDATIONS/PLAN: ASA 325 mg daily, or 300 mg rectal if not take PO. Zocor 20 mg HS. Brain MRI. Carotid A US + Doppler. Echo + Bubble study. Speech and swallow evaluation. Treat medical diseases. HISTORY OF THE PRESENT ILLNESS: 76-y-old female patient with above medical diseases was noted dysarthria with mental status changes and confusion after she woke up. The onset of her symptoms were unknown. She was brought to the ER of [facility] for further evaluation. No focalized motor or sensory deficiency noted. PAST MEDICAL HISTORY: Please see above. PAST SURGERY HISTORY: Hysterectomy Tubal ligation. ALLERGY: Reviewed. MEDICATIONS: Refer to [facility] FAMILY HISTORY: Non contributory. SOCIAL HISTORY: Lives in jail. Denies current smoking, drinking, and illicit drug use. REVIEW OF SYSTEMS: Constitutional: No malnutrition, weight loss, cachexia. Head: No traumatic brain or head injury. Skin: No edema, or rash. Ear: No infection. Eyes: No vision loss or color blindness. Nose: No bleeding or purulent discharges. Hearing: No hearing decrease. Neck: No injury. Breast: No history of cancer, masses,or discharges. Cardiac: HTN, HLD. Pulmonary: No COPD. GI: GERD. Urinary/genital: UTI. Endocrinologic: hypothyroidism. Skeletomuscular: No muscular atrophy, deformity. Neurological: see HP. Psychiatric: Denies drug use/abuse. Otherwise, not [id number] review of systems. PHYSICAL EXAMINATION: General appearance is in confusional state. HEENT: Normocephalic and nontraumatic. Eyes, nose, ears, and throat are unremarkable. Neck is supple. No lymphadenopathy. No bruits are heard over the carotid artery. No crepitus. Cardiovascular: S1, S2, regular rate and rhythm. Pulmonary: Clear to auscultation bilaterally. Abdomen: Bowel sounds are positive. Abdomen is soft, nontender, and nondistended. Extremities: No rash, lesions, or edema. No restriction of range of motion NEUROLOGICAL EXAMINATION: Awake. Unable to communicate. Unable to talk except making some sounds. Not oriented to time, place and person. PERRL. EOMI. CN: no focal findings. Muscle tone: within normal. Muscle strength: 5- DTR: 2 Plantar reflex: Neutral response bilaterally Gait: not examined in bed. Sensory exam: no acute abnormal findings. Not able to access cerebellar signs due to not follow commands. F-T-N test not performed due to unable to follow commands. Current Medications Current Medications Current Medications Ondansetron HCl (Zofran) 4 mg PRN Q8HRS PRN IV NAUSEA/VOMITING; Start 11/18/16 at 11:30; Stop 11/19/16 at 11:29 Acetaminophen/ Hydrocodone Bitart (Lortab 5/325) 1 tab PRN Q8HRS PRN PO PAIN; Start 11/18/16 at 14:00 Levothyroxine Sodium (Synthroid) 50 mcg DAILY PO ; Start 11/18/16 at 14:00 Lisinopril (Prinivil) 20 mg DAILY PO ; Start 11/18/16 at 14:00 Montelukast Sodium (Singulair) 10 mg HS PO ; Start 11/18/16 at 21:00 Simvastatin (Zocor) 20 mg QHS PO ; Start 11/18/16 at 21:00 Zolpidem Tartrate (Ambien) 5 mg QHS PO ; Start 11/18/16 at 21:00 Escitalopram Oxalate (Lexapro) 10 mg DAILY PO ; Start 11/19/16 at 09:00 Meloxicam (Mobic) 15 mg DAILY PO ; Start 11/19/16 at 09:00 Enoxaparin Sodium (Lovenox 40mg Syringe) 40 mg Q24H SQ ; Start 11/18/16 at 14:00 Famotidine (Pepcid) 20 mg QHS PO ; Start 11/18/16 at 21:00 Active Scripts Active Flagyl (Metronidazole) 500 Mg Tablet 500 Mg PO TID Triamcinolone Acetonide 0.1% Oint (Triamcinolone Acetonide) 15 Gm Oint...g. 1 Scarlett TP BID MIX WITH EUCERIN DIRECTED BY PHYSICIAN Prednisone 20 Mg Tablet 40 Mg PO DAILY Lisinopril 20 Mg Tablet 1 Tab PO DAILY Reported Ambien (Zolpidem Tartrate) 5 Mg Tablet 1 Tab PO QHS Escitalopram Oxalate 10 Mg Tablet 1 Tab PO DAILY Montelukast Sodium Tablet (Montelukast Sodium) 10 Mg Tablet 10 Mg PO HS Hydrocodone-Apap 5-325 (Hydrocodone Bit/Acetaminophen) 1 Each Tablet 1 Tab PO PRN Q8HRS PRN Meloxicam 15 Mg Tablet 1 Tab PO DAILY Levothyroxine Sodium 50 Mcg Tablet 1 Tab PO DAILY Simvastatin 20 Mg Tablet 1 Tab PO QHS Allergies Allergies: Coded Allergies: codeine (Verified Allergy, Intermediate, Nausea and Vomiting, 09/27/16) Vitals VITALS Vital Signs Date Time Temp Pulse Resp B/P (MAP) Pulse Ox O2 Delivery O2 Flow Rate FiO2 11/18/16 14:33 96.7 64 18 134/63 (86) 99 Room Air 96.7 Labs Labs Laboratory Tests Test 11/18/16 07:40 11/18/16 08:00 White Blood Count 12.7 x10^3/uL (4.0-11.0) Red Blood Count 4.00 x10^6/uL (3.50-5.40) Hemoglobin 12.0 g/dL (12.0-15.5) Hematocrit 36.3 % (36.0-47.0) Mean Corpuscular Volume 91 fL (79-100) Mean Corpuscular Hemoglobin 30 pg (25-35) Mean Corpuscular Hemoglobin Concent 33 g/dL (31-37) Red Cell Distribution Width 12.7 % (11.5-14.5) Platelet Count 232 x10^3/uL (140-400) Neutrophils (%) (Auto) 52 % (31-73) Lymphocytes (%) (Auto) 38 % (24-48) Monocytes (%) (Auto) 8 % (0-9) Eosinophils (%) (Auto) 2 % (0-3) Basophils (%) (Auto) 1 % (0-3) Neutrophils # (Auto) 6.6 x10^3uL (1.8-7.7) Lymphocytes # (Auto) 4.8 x10^3/uL (1.0-4.8) Monocytes # (Auto) 1.0 x10^3/uL (0.0-1.1) Eosinophils # (Auto) 0.2 x10^3/uL (0.0-0.7) Basophils # (Auto) 0.1 x10^3/uL (0.0-0.2) Sodium Level 144 mmol/L (136-145) Potassium Level 4.6 mmol/L (3.5-5.1) Chloride Level 107 mmol/L (98-107) Carbon Dioxide Level 28 mmol/L (21-32) Anion Gap 9 (6-14) Blood Urea Nitrogen 22 mg/dL (7-20) Creatinine 0.9 mg/dL (0.6-1.0) Estimated GFR (Cockcroft-Gault) 60.7 BUN/Creatinine Ratio 24 (6-20) Glucose Level 122 mg/dL (70-99) Calcium Level 9.0 mg/dL (8.5-10.1) Total Bilirubin 0.3 mg/dL (0.2-1.0) Aspartate Amino Transf (AST/SGOT) 23 U/L (15-37) Alanine Aminotransferase (ALT/SGPT) 19 U/L (14-59) Alkaline Phosphatase 52 U/L (46-116) Troponin I Quantitative < 0.017 ng/mL (0.000-0.055) GA-Jzz-[id number]-Type Natriuretic Peptide 73 pg/mL (0-449) Total Protein 7.8 g/dL (6.4-8.2) Albumin 4.0 g/dL (3.4-5.0) Albumin/Globulin Ratio 1.1 (1.0-1.7) Thyroid Stimulating Hormone (TSH) 1.765 uIU/mL (0.358-3.74) Urine Collection Type U cath Urine Color Yellow Urine Clarity Clear Urine pH 6.0 Urine Specific [place] 1.020 Urine Protein Negative mg/dL (NEG-TRACE) Urine Glucose (UA) Negative mg/dL (NEG) Urine Ketones (Stick) Negative mg/dL (NEG) Urine Blood Negative (NEG) Urine Nitrite Negative (NEG) Urine Bilirubin Negative (NEG) Urine Urobilinogen Dipstick 0.2 mg/dL (0.2 mg/dL) Urine Leukocyte Esterase Negative (NEG) Urine RBC 1-2 /HPF (0-2) Urine WBC 1-4 /HPF (0-4) Urine Squamous Epithelial Cells Few /LPF Urine Renal Epithelial Cells Few /LPF Urine Amorphous Sediment Present /HPF Urine Bacteria Few /HPF (0-FEW) Urine Mucus Marked /LPF Urine Opiates Screen Pos (NEG) Urine Methadone Screen Neg (NEG) Urine Barbiturates Neg (NEG) Urine Phencyclidine Screen Neg (NEG) Urine Amphetamine/Methamphetamine Neg (NEG) Urine Benzodiazepines Screen Neg (NEG) Urine Cocaine Screen Neg (NEG) Urine Cannabinoids Screen Neg (NEG) Urine Ethyl Alcohol Neg (NEG) Laboratory Tests Test 11/18/16 07:40 11/18/16 08:00 White Blood Count 12.7 x10^3/uL (4.0-11.0) Red Blood Count 4.00 x10^6/uL (3.50-5.40) Hemoglobin 12.0 g/dL (12.0-15.5) Hematocrit 36.3 % (36.0-47.0) Mean Corpuscular Volume 91 fL (79-100) Mean Corpuscular Hemoglobin 30 pg (25-35) Mean Corpuscular Hemoglobin Concent 33 g/dL (31-37) Red Cell Distribution Width 12.7 % (11.5-14.5) Platelet Count 232 x10^3/uL (140-400) Neutrophils (%) (Auto) 52 % (31-73) Lymphocytes (%) (Auto) 38 % (24-48) Monocytes (%) (Auto) 8 % (0-9) Eosinophils (%) (Auto) 2 % (0-3) Basophils (%) (Auto) 1 % (0-3) Neutrophils # (Auto) 6.6 x10^3uL (1.8-7.7) Lymphocytes # (Auto) 4.8 x10^3/uL (1.0-4.8) Monocytes # (Auto) 1.0 x10^3/uL (0.0-1.1) Eosinophils # (Auto) 0.2 x10^3/uL (0.0-0.7) Basophils # (Auto) 0.1 x10^3/uL (0.0-0.2) Sodium Level 144 mmol/L (136-145) Potassium Level 4.6 mmol/L (3.5-5.1) Chloride Level 107 mmol/L (98-107) Carbon Dioxide Level 28 mmol/L (21-32) Anion Gap 9 (6-14) Blood Urea Nitrogen 22 mg/dL (7-20) Creatinine 0.9 mg/dL (0.6-1.0) Estimated GFR (Cockcroft-Gault) 60.7 BUN/Creatinine Ratio 24 (6-20) Glucose Level 122 mg/dL (70-99) Calcium Level 9.0 mg/dL (8.5-10.1) Total Bilirubin 0.3 mg/dL (0.2-1.0) Aspartate Amino Transf (AST/SGOT) 23 U/L (15-37) Alanine Aminotransferase (ALT/SGPT) 19 U/L (14-59) Alkaline Phosphatase 52 U/L (46-116) Troponin I Quantitative < 0.017 ng/mL (0.000-0.055) NM-Dhh-U-Type Natriuretic Peptide 73 pg/mL (0-449) Total Protein 7.8 g/dL (6.4-8.2) Albumin 4.0 g/dL (3.4-5.0) Albumin/Globulin Ratio 1.1 (1.0-1.7) Thyroid Stimulating Hormone (TSH) 1.765 uIU/mL (0.358-3.74) Urine Collection Type U cath Urine Color Yellow Urine Clarity Clear Urine pH 6.0 Urine Specific [place] 1.020 Urine Protein Negative mg/dL (NEG-TRACE) Urine Glucose (UA) Negative mg/dL (NEG) Urine Ketones (Stick) Negative mg/dL (NEG) Urine Blood Negative (NEG) Urine Nitrite Negative (NEG) Urine Bilirubin Negative (NEG) Urine Urobilinogen Dipstick 0.2 mg/dL (0.2 mg/dL) Urine Leukocyte Esterase Negative (NEG) Urine RBC 1-2 /HPF (0-2) Urine WBC 1-4 /HPF (0-4) Urine Squamous Epithelial Cells Few /LPF Urine Renal Epithelial Cells Few /LPF Urine Amorphous Sediment Present /HPF Urine Bacteria Few /HPF (0-FEW) Urine Mucus Marked /LPF Urine Opiates Screen Pos (NEG) Urine Methadone Screen Neg (NEG) Urine Barbiturates Neg (NEG) Urine Phencyclidine Screen Neg (NEG) Urine Amphetamine/Methamphetamine Neg (NEG) Urine Benzodiazepines Screen Neg (NEG) Urine Cocaine Screen Neg (NEG) Urine Cannabinoids Screen Neg (NEG) Urine Ethyl Alcohol Neg (NEG) GRACE PICKARD MD Nov 18, 2016 14:57
[2016-11-18] MEDS: ASPIRIN 325 MG TABLET PO SCH (16:00)
--- NOTE | 2016-11-18 17:12 | HP ---
ADMIT DATE: 11/18/2016 CHIEF COMPLAINT: Speech changes. HISTORY OF PRESENT ILLNESS: Please note that most of history was actually obtained from chart as the patient is unable to communicate properly. She does answer 'yes' and 'no' questions and follows commands. The patient is a 76-year-old half-way resident with past medical history of hypertension and hypercholesterolemia, who woke this morning with difficulties of localizing normal speech. Per half-way facility staff, the patient had been doing well last night; however, this morning upon waking, was repeating "tap tap tap" and was unable to speak in full sentences. On questioning the patient, she denies any ongoing headaches, any swallowing difficulties, or other problems. She does affirm with head movement that this started this morning upon awaking. She denies any other weakness in her arms or legs. During the conversation, she is able to answer appropriately with 1 or 2 words, but longer sentences become garbled and interrupted by "tap tap tap". PAST MEDICAL HISTORY: Hypertension, hypercholesterolemia, hypothyroidism, GERD, and anxiety. FAMILY HISTORY: Unable to obtain from the patient. SOCIAL HISTORY: Currently in a half-way. No ongoing toxic habits. ALLERGIES: CODEINE. HOME MEDICATIONS: Reconciled with [facility]. REVIEW OF SYSTEMS: Limited due to inability to verbalize, but patient denies any headaches, any vision problems, weakness in her extremities. Denies any chest pain, any abdominal pain, shortness of breath, vomiting, or diarrhea. PHYSICAL EXAMINATION: VITAL SIGNS: From today show a blood pressure of 103/55, heart rate at 58, respiratory rate at 18. She is afebrile. GENERAL: This is a well-nourished 76-year-old woman, appears alert, in no acute distress. HEENT: Shows no scleral icterus. Extraocular movement is intact. NECK: Supple, without any lymphadenopathy. LUNGS: Clear bilaterally. HEART: Regular rate and rhythm without any murmurs. ABDOMEN: Obese, positive bowel sounds, soft, nontender. EXTREMITIES: Show no edema, no clubbing, no cyanosis. SKIN: Warm, soft and dry. NEUROLOGIC: Grossly intact, safe for a garbled speech. LABORATORY DATA: CBC with a WBC of 12.7, hemoglobin 12.0, platelets of 232. Chemistries with a BUN and creatinine of 22 and 0.9, normal electrolytes, normal LFTs. Initial troponin is negative. TSH at 1.7. Tox screen positive for opiates, the patient has hydrocodone p.r.n. on her medication list. IMAGING STUDIES: CT of the head without contrast shows chronic changes compatible with microvascular disease and no acute findings. ASSESSMENT AND PLAN: The patient is a 76-year-old half-way patient with hypertension, hyperlipidemia, presenting with a garbled speech, suspicious for a CVA. Unfortunately, time of onset is indeterminable as she woke up with this, thus making her ineligible for TPA. Neurology consult will be obtained. Aspirin has been started. We will delineate further risk factors as well. MRI of the brain will be obtained. Home medications will be continued for the time being. She will receive Lovenox for deep vein thrombosis prophylaxis. FABIANA LOPEZ MD DR: UR/nts JOB#: [id number] / [id number] NURA
[2016-11-18 19:05] VITALS: BP 139/55
[2016-11-18] MEDS: ZOLPIDEM 5 MG TABLET. PO SCH (19:16)
[2016-11-18] MEDS: FAMOTIDINE 20 MG TABLET. PO SCH (19:17)
[2016-11-18] MEDS: MONTELUKAST SODIUM 10 MG TABLET. PO SCH (19:17)
[2016-11-18] MEDS: SIMVASTATIN 20 MG TABLET PO SCH (19:17)
[2016-11-18 23:05] VITALS: BP 141/59
--- NOTE | 2016-11-19 00:27 | ACF ---
Admission Forms Criteria MENTAL STATUS CHANGE Clinical Indications for Inpatient Care (Place 'X' for any and all applicable criteria): Ongoing inpatient care may be needed for 1 or more of the following(1)(2)(3)(5)( 6): [ X]I. Suspected serious etiology (eg, medical disorder, FISHER LOBSTER event) of altered mental status [ ]II. Danger to self or others not manageable at lower level of care [ ]III. Grave disability (eg, inability to perform self care necessary at lower level of care) [ ]IV. Agitation or inappropriate behavior interfering with care for primary condition (eg, attempting to discontinue lines or drains prematurely, unable to cooperate with respiratory care) [ ]V. Delirium [A] [D][E] as described by 1 or more of the following(26): [ ]a) Delirium due to alcohol or sedative [F] withdrawal [ ]b) Delirium of uncertain etiology that has not responded to appropriate empiric treatment [ ]c) Delirium that prevents performance of a life-sustaining function (eg, feeding or hydrating oneself) [ ]. General contraindications and/or Inappropriate clinical situations for Observational Care in patients with Mental Status Change, when ANY ONE of the following is required: [ ]a) Prediction of prolongation of LOS based on ANY ONE of the following may be considered as a contraindication for observational care 2, 3, 4, 5, 6, 7, 8, 9, 10, 11 [ ]i) Age > 65 yrs. [ ]ii) Patient arriving by ambulance [ ]iii) Patient with high acuity [ ]iv) Patient requiring vital sign monitoring [ ]v) Patient on IV medication [ ]b) Systolic blood pressures greater than or equal to 180mmHg 3, 12 [ ]c) Patient with altered mental status including delirium and other alteration of consciousness, (3) [ ]d) Patient whose discharge disposition will be to a custodial home or rehabilitation home should not be managed in Emergency Department Observation Unit. CMS rule requires 3 days hospital stay before such placement.3,13 [ ]e) Patient with failure to thrive due to broad array of etiologies 3,16,17 [ ]f) Inability to ambulate 3,14 Extended stay beyond goal length of stay for the primary condition may be needed until ALL of the following are present(3)(5): [ ]a) Underlying medical etiology of mental status change is absent, or has been established and adequately treated [ ]b) Danger to self or others is absent or manageable at lower level of care. [ ]c) Behavior crisis management, including physical or chemical restraints, is not required or available at lower level of car [ ]d) Substance or alcohol withdrawal is absent or manageable at lower level of care. [ ]e) Behavioral symptoms (eg, agitation, somnolence, inappropriate behavior) are absent, or are manageable at lower level of care. The original [facility] content created by [facility] has been revised. The portions of the content which have been revised are identified through the use of italic text or in bold, and [facility] has neither reviewed nor approved the modified material. All other unmodified content is copyright [facility]. Please see references footnoted in the original [facility] Admission Criteria Met?: Yes JORDAN MURRAY Nov 19, 2016 00:26
[2016-11-19 03:05] VITALS: BP 151/57
[2016-11-19 03:37] LABS: BASO # 0.1 x10^3/uL (0.0-0.2); BASO % 1 % (0-3); EOS % 2 % (0-3); HEMATOCRIT 34.5 % (36.0-47.0); HEMOGLOBIN 11.5 g/dL (12.0-15.5); LYMPH # 5.4 x10^3/uL (1.0-4.8); LYMPH % 44 % (24-48); MEAN CORPUSCULAR HEMOGLOBIN 30 pg (25-35); MEAN CORPUSCULAR HGB CONC 33 g/dL (31-37); MEAN CORPUSCULAR VOLUME 91 fL (79-100); MONO % 7 % (0-9); NEUT % 47 % (31-73); PLATELET COUNT 236 x10^3/uL (140-400); RED CELL DISTRIBUTION WIDTH 12.7 % (11.5-14.5); WHITE BLOOD COUNT 12.3 x10^3/uL (4.0-11.0)
[2016-11-19 04:10] LABS: CALCIUM 9.1 mg/dL (8.5-10.1); CREATININE 0.8 mg/dL (0.6-1.0); GFR 69.6; POTASSIUM 3.7 mmol/L (3.5-5.1)
[2016-11-19 04:25] LABS: CHOLESTEROL/HDL RATIO 3.1
[2016-11-19 07:00] VITALS: BP 160/59
--- NOTE | 2016-11-19 07:22 | RAD ---
Carotid ultrasound, 11/18/2016: History: CVA Duplex evaluation of the carotid arteries in the neck was performed including grayscale, color-flow and spectral Doppler analysis. There is intimal thickening in the common carotid arteries with mild smooth plaquing at both carotid bifurcations. The plaques are partially calcified. The Doppler data obtained from the bifurcations reveals no significant focal velocity elevation to suggest a hemodynamically significant carotid stenosis. The peak systolic velocity in the right internal carotid artery is 66 cm/s with an end-diastolic velocity of 19 cm/s. On the left, the peak systolic velocity in the internal carotid artery is 64 cm/s with an end-diastolic velocity of 11 cm/s. Antegrade flow is present in both vertebral arteries in the neck. IMPRESSION: Mild atherosclerotic plaquing at both carotid bifurcations with underlying luminal narrowing in the 0-50% diameter range bilaterally. Note: Stenosis calculations for CT, MRA and conventional angiography are based upon determination of the distal ICA diameter in accordance with the NASCET methodology. Stenosis calculations for Doppler studies are derived from validated velocity criteria which are known to correlate with NASCET methodology of determining stenosis.
[2016-11-19] MEDS: LEVOTHYROXINE 50 MCG TABLET PO SCH (08:26)
[2016-11-19] MEDS: ESCITALOPRAM 5 MG TABLET. PO SCH (08:26)
[2016-11-19] MEDS: ASPIRIN 325 MG TABLET PO SCH (08:26)
[2016-11-19] MEDS: MELOXICAM 7.5 MG TABLET PO SCH (08:26)
[2016-11-19] MEDS: LISINOPRIL 20 MG TABLET PO SCH (08:27)
[2016-11-19] MEDS: HYDROcodone/APAP 5/325MG 1 TAB TABLET PO PRN ×2 (09:52→23:57)
[2016-11-19 11:00] VITALS: BP 147/54
--- NOTE | 2016-11-19 11:01 | PDOC ---
PROGRESS NOTES Assessment Dysarthria, onset time unknown. Metabolic encephalopathy. Confusion. HTN HLD Hypothyroidism GERD Plan ASA 325 mg daily, or 300 mg rectal if not take PO. Zocor 20 mg HS. Await brain MRI. Await echo + Bubble study. Speech and swallow evaluation. PT/OT too Treat medical diseases. Subjective No complaints, speech is better Objective Vital Signs Date Time Temp Pulse Resp B/P (MAP) Pulse Ox O2 Delivery O2 Flow Rate FiO2 11/19/16 09:52 97 Room Air 11/19/16 08:27 62 150/69 11/19/16 07:00 98.2 20 98.2 Intake and Output 11/19/16 07:00 Intake Total 0 ml Output Total 114 ml Balance -114 ml Intake Oral 0 ml Output Urine Total 114 ml # Voids 1 # Bowel Movements 2 PHYSICAL EXAM Alert. Oriented to time, place and person. PERRL. EOMI. CN: no focal findings. Muscle tone: normal. Muscle strength: 5-/5 DTR: 2+ Plantar reflex: flexor Gait: not examined in bed. Sensory exam: no abnormal findings. No cerebellar signs elicited. Review of Relevant I have reviewed the following items erika (where applicable) has been applied. Labs Laboratory Tests Test 11/18/16 07:40 11/18/16 08:00 11/19/16 03:00 White Blood Count 12.7 x10^3/uL (4.0-11.0) 12.3 x10^3/uL (4.0-11.0) Red Blood Count 4.00 x10^6/uL (3.50-5.40) 3.80 x10^6/uL (3.50-5.40) Hemoglobin 12.0 g/dL (12.0-15.5) 11.5 g/dL (12.0-15.5) Hematocrit 36.3 % (36.0-47.0) 34.5 % (36.0-47.0) Mean Corpuscular Volume 91 fL (79-100) 91 fL (79-100) Mean Corpuscular Hemoglobin 30 pg (25-35) 30 pg (25-35) Mean Corpuscular Hemoglobin Concent 33 g/dL (31-37) 33 g/dL (31-37) Red Cell Distribution Width 12.7 % (11.5-14.5) 12.7 % (11.5-14.5) Platelet Count 232 x10^3/uL (140-400) 236 x10^3/uL (140-400) Neutrophils (%) (Auto) 52 % (31-73) 47 % (31-73) Lymphocytes (%) (Auto) 38 % (24-48) 44 % (24-48) Monocytes (%) (Auto) 8 % (0-9) 7 % (0-9) Eosinophils (%) (Auto) 2 % (0-3) 2 % (0-3) Basophils (%) (Auto) 1 % (0-3) 1 % (0-3) Neutrophils # (Auto) 6.6 x10^3uL (1.8-7.7) 5.7 x10^3uL (1.8-7.7) Lymphocytes # (Auto) 4.8 x10^3/uL (1.0-4.8) 5.4 x10^3/uL (1.0-4.8) Monocytes # (Auto) 1.0 x10^3/uL (0.0-1.1) 0.9 x10^3/uL (0.0-1.1) Eosinophils # (Auto) 0.2 x10^3/uL (0.0-0.7) 0.2 x10^3/uL (0.0-0.7) Basophils # (Auto) 0.1 x10^3/uL (0.0-0.2) 0.1 x10^3/uL (0.0-0.2) Sodium Level 144 mmol/L (136-145) 142 mmol/L (136-145) Potassium Level 4.6 mmol/L (3.5-5.1) 3.7 mmol/L (3.5-5.1) Chloride Level 107 mmol/L (98-107) 107 mmol/L (98-107) Carbon Dioxide Level 28 mmol/L (21-32) 26 mmol/L (21-32) Anion Gap 9 (6-14) 9 (6-14) Blood Urea Nitrogen 22 mg/dL (7-20) 19 mg/dL (7-20) Creatinine 0.9 mg/dL (0.6-1.0) 0.8 mg/dL (0.6-1.0) Estimated GFR (Cockcroft-Gault) 60.7 69.6 BUN/Creatinine Ratio 24 (6-20) Glucose Level 122 mg/dL (70-99) 111 mg/dL (70-99) Calcium Level 9.0 mg/dL (8.5-10.1) 9.1 mg/dL (8.5-10.1) Total Bilirubin 0.3 mg/dL (0.2-1.0) Aspartate Amino Transf (AST/SGOT) 23 U/L (15-37) Alanine Aminotransferase (ALT/SGPT) 19 U/L (14-59) Alkaline Phosphatase 52 U/L (46-116) Troponin I Quantitative < 0.017 ng/mL (0.000-0.055) GF-Did-V-Type Natriuretic Peptide 73 pg/mL (0-449) Total Protein 7.8 g/dL (6.4-8.2) Albumin 4.0 g/dL (3.4-5.0) Albumin/Globulin Ratio 1.1 (1.0-1.7) Vitamin B12 Level 481 pg/mL (247-911) Thyroid Stimulating Hormone (TSH) 1.765 uIU/mL (0.358-3.74) Urine Collection Type U cath Urine Color Yellow Urine Clarity Clear Urine pH 6.0 Urine Specific Rumely 1.020 Urine Protein Negative mg/dL (NEG-TRACE) Urine Glucose (UA) Negative mg/dL (NEG) Urine Ketones (Stick) Negative mg/dL (NEG) Urine Blood Negative (NEG) Urine Nitrite Negative (NEG) Urine Bilirubin Negative (NEG) Urine Urobilinogen Dipstick 0.2 mg/dL (0.2 mg/dL) Urine Leukocyte Esterase Negative (NEG) Urine RBC 1-2 /HPF (0-2) Urine WBC 1-4 /HPF (0-4) Urine Squamous Epithelial Cells Few /LPF Urine Renal Epithelial Cells Few /LPF Urine Amorphous Sediment Present /HPF Urine Bacteria Few /HPF (0-FEW) Urine Mucus Marked /LPF Urine Opiates Screen Pos (NEG) Urine Methadone Screen Neg (NEG) Urine Barbiturates Neg (NEG) Urine Phencyclidine Screen Neg (NEG) Urine Amphetamine/Methamphetamine Neg (NEG) Urine Benzodiazepines Screen Neg (NEG) Urine Cocaine Screen Neg (NEG) Urine Cannabinoids Screen Neg (NEG) Urine Ethyl Alcohol Neg (NEG) Triglycerides Level 94 mg/dL (0-150) Cholesterol Level 136 mg/dL (0-200) LDL Cholesterol, Calculated 73 mg/dL (0-100) VLDL Cholesterol, Calculated 19 mg/dL (0-40) Non-HDL Cholesterol Calculated 92 mg/dL (0-129) HDL Cholesterol 44 mg/dL (40-60) Cholesterol/HDL Ratio 3.1 Laboratory Tests Test 11/19/16 03:00 White Blood Count 12.3 x10^3/uL (4.0-11.0) Red Blood Count 3.80 x10^6/uL (3.50-5.40) Hemoglobin 11.5 g/dL (12.0-15.5) Hematocrit 34.5 % (36.0-47.0) Mean Corpuscular Volume 91 fL (79-100) Mean Corpuscular Hemoglobin 30 pg (25-35) Mean Corpuscular Hemoglobin Concent 33 g/dL (31-37) Red Cell Distribution Width 12.7 % (11.5-14.5) Platelet Count 236 x10^3/uL (140-400) Neutrophils (%) (Auto) 47 % (31-73) Lymphocytes (%) (Auto) 44 % (24-48) Monocytes (%) (Auto) 7 % (0-9) Eosinophils (%) (Auto) 2 % (0-3) Basophils (%) (Auto) 1 % (0-3) Neutrophils # (Auto) 5.7 x10^3uL (1.8-7.7) Lymphocytes # (Auto) 5.4 x10^3/uL (1.0-4.8) Monocytes # (Auto) 0.9 x10^3/uL (0.0-1.1) Eosinophils # (Auto) 0.2 x10^3/uL (0.0-0.7) Basophils # (Auto) 0.1 x10^3/uL (0.0-0.2) Sodium Level 142 mmol/L (136-145) Potassium Level 3.7 mmol/L (3.5-5.1) Chloride Level 107 mmol/L (98-107) Carbon Dioxide Level 26 mmol/L (21-32) Anion Gap 9 (6-14) Blood Urea Nitrogen 19 mg/dL (7-20) Creatinine 0.8 mg/dL (0.6-1.0) Estimated GFR (Cockcroft-Gault) 69.6 Glucose Level 111 mg/dL (70-99) Calcium Level 9.1 mg/dL (8.5-10.1) Triglycerides Level 94 mg/dL (0-150) Cholesterol Level 136 mg/dL (0-200) LDL Cholesterol, Calculated 73 mg/dL (0-100) VLDL Cholesterol, Calculated 19 mg/dL (0-40) Non-HDL Cholesterol Calculated 92 mg/dL (0-129) HDL Cholesterol 44 mg/dL (40-60) Cholesterol/HDL Ratio 3.1 Medications Current Medications Ondansetron HCl (Zofran) 4 mg PRN Q8HRS PRN IV NAUSEA/VOMITING; Start 11/18/16 at 11:30; Stop 11/19/16 at 11:29 Acetaminophen/ Hydrocodone Bitart (Lortab 5/325) 1 tab PRN Q8HRS PRN PO PAIN Last administered on 11/19/16 09:52; Start 11/18/16 at 14:00 Levothyroxine Sodium (Synthroid) 50 mcg DAILY PO Last administered on 08:26; Start 11/18/16 at 14:00 Lisinopril (Prinivil) 20 mg DAILY PO Last administered on 11/19/16 08:27; Start 11/18/16 at 14:00 Montelukast Sodium (Singulair) 10 mg HS PO ; Start 11/18/16 at 21:00 Simvastatin (Zocor) 20 mg QHS PO ; Start 11/18/16 at 21:00 Zolpidem Tartrate (Ambien) 5 mg QHS PO ; Start 11/18/16 at 21:00 Escitalopram Oxalate (Lexapro) 10 mg DAILY PO Last administered on 11/19/16 08 :26; Start 11/19/16 at 09:00 Meloxicam (Mobic) 15 mg DAILY PO Last administered on 11/19/16 08:26; Start at 09:00 Enoxaparin Sodium (Lovenox 40mg Syringe) 40 mg Q24H SQ ; Start 11/18/16 at 14:00 Famotidine (Pepcid) 20 mg QHS PO ; Start 11/18/16 at 21:00 Aspirin (Trinity Aspirin) 325 mg DAILYWBKFT PO Last administered on 11/19/16 08: 26; Start 11/18/16 at 16:00 Active Scripts Active Flagyl (Metronidazole) 500 Mg Tablet 500 Mg PO TID Triamcinolone Acetonide 0.1% Oint (Triamcinolone Acetonide) 15 Gm Oint...g. 1 Scarlett TP BID MIX WITH EUCERIN DIRECTED BY PHYSICIAN Prednisone 20 Mg Tablet 40 Mg PO DAILY Lisinopril 20 Mg Tablet 1 Tab PO DAILY Reported Ambien (Zolpidem Tartrate) 5 Mg Tablet 1 Tab PO QHS Escitalopram Oxalate 10 Mg Tablet 1 Tab PO DAILY Montelukast Sodium Tablet (Montelukast Sodium) 10 Mg Tablet 10 Mg PO HS Hydrocodone-Apap 5-325 (Hydrocodone Bit/Acetaminophen) 1 Each Tablet 1 Tab PO PRN Q8HRS PRN Meloxicam 15 Mg Tablet 1 Tab PO DAILY Levothyroxine Sodium 50 Mcg Tablet 1 Tab PO DAILY Simvastatin 20 Mg Tablet 1 Tab PO QHS Vitals/I & O Vital Sign - Last 24 Hours 11/18/16 11/18/16 11/18/16 11/18/16 11:00 12:44 12:53 14:33 Temp 98.3 96.7 98.3 96.7 Pulse 61 58 64 Resp 24 18 18 B/P (MAP) 197/77 (117) 103/55 (71) 134/63 (86) Pulse Ox 98 100 99 O2 Delivery Room Air Room Air Room Air 11/18/16 11/18/16 11/18/16 11/19/16 19:05 20:00 23:05 03:05 Temp 98.0 98.0 98.1 98.0 98.0 98.1 Pulse 71 72 69 Resp 20 18 18 B/P (MAP) 139/55 (83) 141/59 (86) 151/57 (88) Pulse Ox 98 94 99 O2 Delivery Room Air Room Air Room Air Room Air 11/19/16 11/19/16 11/19/16 11/19/16 07:00 08:00 08:27 09:52 Temp 98.2 98.2 Pulse 62 62 Resp 20 B/P (MAP) 160/59 (92) 150/69 Pulse Ox 97 97 O2 Delivery Room Air Room Air Room Air Intake and Output 11/18/16 11/18/16 11/19/16 15:00 23:00 07:00 Intake Total 0 ml Output Total 114 ml 0 ml Balance -114 ml 0 ml 0 ml Images Carotids: IMPRESSION: Mild atherosclerotic plaquing at both carotid bifurcations with underlying luminal narrowing in the 0-50% diameter range bilaterally. SAI AMIN MD Nov 19, 2016 11:01
--- NOTE | 2016-11-19 12:24 | PDOC ---
PROGRESS NOTES Chief Complaint Chief Complaint Aphasia ASSESSMENT AND PLAN: 1. CVA: clinically improving. appreciate neuro input. work up in progress. will need rehab (?at her NH); wants to go home. Aspirin; 2. HTN: borderline control on lisinopril. add metoprolol 3. HLD: on statin; lipid profile WNL 4. Leukocytosis: stable, suspect reactive, but cannot r/o BM d/o. monitor for now 5. Prophylaxis:lovenox 6. Dispo: anticipate return to [place] in AM History of Present Illness History of Present Illness feels better, save for BELA. speech improved. swallow with dysphagia 3 diet Vitals Vitals Vital Signs Date Time Temp Pulse Resp B/P (MAP) Pulse Ox O2 Delivery O2 Flow Rate FiO2 11/19/16 11:00 98.0 69 18 147/54 (85) 96 Room Air 98.0 Physical Exam General: Alert, Cooperative, No acute distress Heart: Regular rate Lungs: Clear Abdomen: Normal bowel sounds, No tenderness Extremities: No clubbing, No edema Skin: No rashes Labs LABS Laboratory Tests Test 11/19/16 03:00 White Blood Count 12.3 x10^3/uL (4.0-11.0) Red Blood Count 3.80 x10^6/uL (3.50-5.40) Hemoglobin 11.5 g/dL (12.0-15.5) Hematocrit 34.5 % (36.0-47.0) Mean Corpuscular Volume 91 fL (79-100) Mean Corpuscular Hemoglobin 30 pg (25-35) Mean Corpuscular Hemoglobin Concent 33 g/dL (31-37) Red Cell Distribution Width 12.7 % (11.5-14.5) Platelet Count 236 x10^3/uL (140-400) Neutrophils (%) (Auto) 47 % (31-73) Lymphocytes (%) (Auto) 44 % (24-48) Monocytes (%) (Auto) 7 % (0-9) Eosinophils (%) (Auto) 2 % (0-3) Basophils (%) (Auto) 1 % (0-3) Neutrophils # (Auto) 5.7 x10^3uL (1.8-7.7) Lymphocytes # (Auto) 5.4 x10^3/uL (1.0-4.8) Monocytes # (Auto) 0.9 x10^3/uL (0.0-1.1) Eosinophils # (Auto) 0.2 x10^3/uL (0.0-0.7) Basophils # (Auto) 0.1 x10^3/uL (0.0-0.2) Sodium Level 142 mmol/L (136-145) Potassium Level 3.7 mmol/L (3.5-5.1) Chloride Level 107 mmol/L (98-107) Carbon Dioxide Level 26 mmol/L (21-32) Anion Gap 9 (6-14) Blood Urea Nitrogen 19 mg/dL (7-20) Creatinine 0.8 mg/dL (0.6-1.0) Estimated GFR (Cockcroft-Gault) 69.6 Glucose Level 111 mg/dL (70-99) Calcium Level 9.1 mg/dL (8.5-10.1) Triglycerides Level 94 mg/dL (0-150) Cholesterol Level 136 mg/dL (0-200) LDL Cholesterol, Calculated 73 mg/dL (0-100) VLDL Cholesterol, Calculated 19 mg/dL (0-40) Non-HDL Cholesterol Calculated 92 mg/dL (0-129) HDL Cholesterol 44 mg/dL (40-60) Cholesterol/HDL Ratio 3.1 FABIANA LOPEZ MD Nov 19, 2016 12:24
[2016-11-19] MEDS: ENOXAPARIN 40 MG/0.4 ML SYRINGE. SQ SCH (14:00)
[2016-11-19 15:00] VITALS: BP 130/51
[2016-11-19 19:10] VITALS: BP 131/46
--- NOTE | 2016-11-19 19:19 | CARD ---
APPROVED REPORT EXAM: Two-dimensional and M-mode echocardiogram with Doppler and color Doppler. Other Information Quality : Good INDICATION CVA/TIA 2D DIMENSIONS RVDd2.3 (2.9-3.5cm)Left Atrium(2D)2.5 (1.6-4.0cm) IVSd0.8 (0.7-1.1cm)Aortic Root(2D)2.3 (2.0-3.7cm) LVDd4.5 (3.9-5.9cm)LVOT Diameter2.2 (1.8-2.4cm) PWd1.0 (0.7-1.1cm)LVDs2.5 (2.5-4.0cm) FS (%) 30.0 %SV68.6 ml LVEF(%)60.0 (>50%) Aortic Valve AoV Peak Nilson.99.9cm/sAoV VTI19.7cm AO Peak GR.4.0mmHgLVOT Peak Nilson.84.0cm/s AO Mean GR.2mmHgAVA (VMAX)3.11cm2 ALEJO (VTI)3.50cm2 Mitral Valve MV E Zwtzmeuw10.6cm/sMV DECEL [id number] MV A Cuxfwzzl64.8cm/sE/A Ratio0.8 Tricuspid Valve TR P. Xfsvbnkv787re/sRAP WEFLMCTQ4qvWb TR Peak Gr.78wqSlAZRE83haSf LEFT VENTRICLE The left ventricle is normal size. There is normal left ventricular wall thickness. The Ejection Frac tion is 60%. There is normal LV segmental wall motion. Transmitral Doppler flow pattern is Grade I-ab normal relaxation pattern. RIGHT VENTRICLE The right ventricle is normal size. The right ventricular systolic function is normal. ATRIA The left atrium size is normal. The right atrium size is normal. The interatrial septum is intact wit h no evidence for an atrial septal defect or patent foramen ovale as noted on 2-D or Doppler imaging. AORTIC VALVE The aortic valve is not well visualized. Doppler and Color Flow revealed no significant aortic regurg itation. There is no significant aortic valvular stenosis. MITRAL VALVE The mitral valve is normal in structure There is no evidence of mitral valve prolapse. There is no mi tral valve stenosis. Doppler and Color-flow revealed mild mitral regurgitation. TRICUSPID VALVE The tricuspid valve is normal in structure Doppler and Color Flow revealed physiological tricuspid re gurgitation. The PA pressure was estimated at 26 mmHg. There is no tricuspid valve stenosis. PULMONIC VALVE The pulmonary valve is normal in structure Doppler and Color Flow revealed mild pulmonic valvular reg urgitation. There is no pulmonic valvular stenosis. GREAT VESSELS The aortic root is normal in size. The ascending aorta is normal in size. The IVC is normal in size a nd collapses >50% with inspiration. PERICARDIAL EFFUSION There is no evidence of significant pericardial effusion. Critical Notification Critical Value: No <Conclusion> The Ejection Fraction is 60%. Transmitral Doppler flow pattern is Grade I-abnormal relaxation pattern. The left atrium size is normal. The right atrium size is normal. The aortic valve is not well visualized. Doppler and Color-flow revealed mild mitral regurgitation. Doppler and Color Flow revealed physiological tricuspid regurgitation. The PA pressure was estimated at 26 mmHg. Doppler and Color Flow revealed mild pulmonic valvular regurgitation. There is no evidence of significant pericardial effusion.
[2016-11-19] MEDS: ZOLPIDEM 5 MG TABLET. PO SCH (21:32)
[2016-11-19] MEDS: MONTELUKAST SODIUM 10 MG TABLET. PO SCH (21:32)
[2016-11-19] MEDS: FAMOTIDINE 20 MG TABLET. PO SCH (21:32)
[2016-11-19] MEDS: SIMVASTATIN 20 MG TABLET PO SCH (21:33)
[2016-11-19 23:10] VITALS: BP 127/54
[2016-11-20 03:10] VITALS: BP 121/62
[2016-11-20 07:00] VITALS: BP 136/53
[2016-11-20] MEDS: MELOXICAM 7.5 MG TABLET PO SCH (08:56)
[2016-11-20] MEDS: ESCITALOPRAM 5 MG TABLET. PO SCH (08:56)
[2016-11-20] MEDS: ASPIRIN 325 MG TABLET PO SCH (08:56)
[2016-11-20] MEDS: LISINOPRIL 20 MG TABLET PO SCH (08:57)
[2016-11-20] MEDS: LEVOTHYROXINE 50 MCG TABLET PO SCH (09:00)
[2016-11-20 11:00] VITALS: BP 126/57
--- NOTE | 2016-11-20 11:38 | PDOC ---
PROGRESS NOTES Assessment Dysarthria, suspect brainstem transient ischemic attack Metabolic encephalopathy. Confusion. HTN HLD Hypothyroidism GERD Plan ASA 325 mg daily, or 300 mg rectal if not take PO. Zocor 20 mg HS. Await brain MRI. Await echo + Bubble study. Speech and swallow evaluation. PT/OT too Treat medical diseases. Subjective No neurological complaints Objective Vital Signs Date Time Temp Pulse Resp B/P (MAP) Pulse Ox O2 Delivery O2 Flow Rate FiO2 11/20/16 11:00 97.7 74 18 126/57 (80) 97 Room Air 97.7 Intake and Output 11/20/16 07:00 Intake Total 750 ml Balance 750 ml Intake Oral 750 ml # Voids 4 # Bowel Movements 2 PHYSICAL EXAM Alert. Oriented to time, place and person. PERRL. EOMI. CN: no focal findings. Muscle tone: normal. Muscle strength: 5-/5 DTR: 2+ Plantar reflex: flexor Gait: not examined in bed. Sensory exam: no abnormal findings. No cerebellar signs elicited. Review of Relevant I have reviewed the following items erika (where applicable) has been applied. Labs Laboratory Tests Test 11/19/16 03:00 White Blood Count 12.3 x10^3/uL (4.0-11.0) Red Blood Count 3.80 x10^6/uL (3.50-5.40) Hemoglobin 11.5 g/dL (12.0-15.5) Hematocrit 34.5 % (36.0-47.0) Mean Corpuscular Volume 91 fL (79-100) Mean Corpuscular Hemoglobin 30 pg (25-35) Mean Corpuscular Hemoglobin Concent 33 g/dL (31-37) Red Cell Distribution Width 12.7 % (11.5-14.5) Platelet Count 236 x10^3/uL (140-400) Neutrophils (%) (Auto) 47 % (31-73) Lymphocytes (%) (Auto) 44 % (24-48) Monocytes (%) (Auto) 7 % (0-9) Eosinophils (%) (Auto) 2 % (0-3) Basophils (%) (Auto) 1 % (0-3) Neutrophils # (Auto) 5.7 x10^3uL (1.8-7.7) Lymphocytes # (Auto) 5.4 x10^3/uL (1.0-4.8) Monocytes # (Auto) 0.9 x10^3/uL (0.0-1.1) Eosinophils # (Auto) 0.2 x10^3/uL (0.0-0.7) Basophils # (Auto) 0.1 x10^3/uL (0.0-0.2) Sodium Level 142 mmol/L (136-145) Potassium Level 3.7 mmol/L (3.5-5.1) Chloride Level 107 mmol/L (98-107) Carbon Dioxide Level 26 mmol/L (21-32) Anion Gap 9 (6-14) Blood Urea Nitrogen 19 mg/dL (7-20) Creatinine 0.8 mg/dL (0.6-1.0) Estimated GFR (Cockcroft-Gault) 69.6 Glucose Level 111 mg/dL (70-99) Calcium Level 9.1 mg/dL (8.5-10.1) Triglycerides Level 94 mg/dL (0-150) Cholesterol Level 136 mg/dL (0-200) LDL Cholesterol, Calculated 73 mg/dL (0-100) VLDL Cholesterol, Calculated 19 mg/dL (0-40) Non-HDL Cholesterol Calculated 92 mg/dL (0-129) HDL Cholesterol 44 mg/dL (40-60) Cholesterol/HDL Ratio 3.1 Medications Current Medications Ondansetron HCl (Zofran) 4 mg PRN Q8HRS PRN IV NAUSEA/VOMITING; Start 11/18/16 at 11:30; Stop 11/19/16 at 11:29; Status DC Acetaminophen/ Hydrocodone Bitart (Lortab 5/325) 1 tab PRN Q8HRS PRN PO PAIN Last administered on 11/19/16 23:57; Start 11/18/16 at 14:00 Levothyroxine Sodium (Synthroid) 50 mcg DAILY PO Last administered on 09:00; Start 11/18/16 at 14:00 Lisinopril (Prinivil) 20 mg DAILY PO Last administered on 11/20/16 08:57; Start 11/18/16 at 14:00 Montelukast Sodium (Singulair) 10 mg HS PO Last administered on 11/19/16 21:32 ; Start 11/18/16 at 21:00 Simvastatin (Zocor) 20 mg QHS PO Last administered on 11/19/16 21:33; Start at 21:00 Zolpidem Tartrate (Ambien) 5 mg QHS PO Last administered on 11/19/16 21:32; Start 11/18/16 at 21:00 Escitalopram Oxalate (Lexapro) 10 mg DAILY PO Last administered on 11/20/16 08 :56; Start 11/19/16 at 09:00 Meloxicam (Mobic) 15 mg DAILY PO Last administered on 11/20/16 08:56; Start at 09:00 Enoxaparin Sodium (Lovenox 40mg Syringe) 40 mg Q24H SQ ; Start 11/18/16 at 14:00 Famotidine (Pepcid) 20 mg QHS PO Last administered on 11/19/16 21:32; Start at 21:00 Aspirin (Trinity Aspirin) 325 mg DAILYWBKFT PO Last administered on 11/20/16 08: 56; Start 11/18/16 at 16:00 Active Scripts Active Flagyl (Metronidazole) 500 Mg Tablet 500 Mg PO TID Triamcinolone Acetonide 0.1% Oint (Triamcinolone Acetonide) 15 Gm Oint...g. 1 Scarlett TP BID MIX WITH EUCERIN DIRECTED BY PHYSICIAN Prednisone 20 Mg Tablet 40 Mg PO DAILY Lisinopril 20 Mg Tablet 1 Tab PO DAILY Reported Ambien (Zolpidem Tartrate) 5 Mg Tablet 1 Tab PO QHS Escitalopram Oxalate 10 Mg Tablet 1 Tab PO DAILY Montelukast Sodium Tablet (Montelukast Sodium) 10 Mg Tablet 10 Mg PO HS Hydrocodone-Apap 5-325 (Hydrocodone Bit/Acetaminophen) 1 Each Tablet 1 Tab PO PRN Q8HRS PRN Meloxicam 15 Mg Tablet 1 Tab PO DAILY Levothyroxine Sodium 50 Mcg Tablet 1 Tab PO DAILY Simvastatin 20 Mg Tablet 1 Tab PO QHS Vitals/I & O Vital Sign - Last 24 Hours 11/19/16 11/19/16 11/19/16 11/19/16 15:00 19:10 20:00 23:10 Temp 98.4 98.0 98.1 98.4 98.0 98.1 Pulse 63 71 69 Resp 18 20 18 B/P (MAP) 130/51 (77) 131/46 (74) 127/54 (78) Pulse Ox 96 97 94 O2 Delivery Room Air Room Air Room Air Room Air 11/19/16 11/20/16 11/20/16 11/20/16 23:57 01:00 03:10 07:00 Temp 97.7 97.6 97.7 97.6 Pulse 70 68 Resp 18 18 B/P (MAP) 121/62 (81) 136/53 (80) Pulse Ox 95 97 O2 Delivery Room Air Room Air Room Air Room Air 11/20/16 11/20/16 11/20/16 08:00 08:57 11:00 Temp 97.7 97.7 Pulse 68 74 Resp 18 B/P (MAP) 136/53 126/57 (80) Pulse Ox 97 O2 Delivery Room Air Room Air Intake and Output 11/19/16 11/19/16 11/20/16 15:00 23:00 07:00 Intake Total 300 ml 450 ml Balance 300 ml 450 ml SAI AMIN MD Nov 20, 2016 11:38
--- NOTE | 2016-11-20 13:10 | PDOC ---
PROGRESS NOTES Chief Complaint Chief Complaint Aphasia ASSESSMENT AND PLAN: 1. CVA: clinically improving. appreciate neuro input. MRI pending. Aspirin; 2. HTN: borderline control on lisinopril. add metoprolol 3. HLD: on statin; lipid profile WNL 4. Leukocytosis: stable, suspect reactive, but cannot r/o BM d/o. monitor for now 5. Prophylaxis:lovenox 6. Dispo: wants to go home, adamant about no rehab or History of Present Illness History of Present Illness speech mariajose sanchez. states she is doing well Vitals Vitals Vital Signs Date Time Temp Pulse Resp B/P (MAP) Pulse Ox O2 Delivery O2 Flow Rate FiO2 11/20/16 11:00 97.7 74 18 126/57 (80) 97 Room Air 97.7 Physical Exam General: Alert, Cooperative, No acute distress Heart: Regular rate Lungs: Clear Abdomen: Normal bowel sounds, No tenderness Extremities: No clubbing, No edema Skin: No rashes FABIANA LOPEZ MD Nov 20, 2016 13:10
[2016-11-20 15:00] VITALS: BP 158/71
[2016-11-20] MEDS: ENOXAPARIN 40 MG/0.4 ML SYRINGE. SQ SCH (16:48)
[2016-11-20 19:10] VITALS: BP 131/94
[2016-11-20] MEDS: MONTELUKAST SODIUM 10 MG TABLET. PO SCH (21:55)
[2016-11-20] MEDS: ZOLPIDEM 5 MG TABLET. PO SCH (21:55)
[2016-11-20] MEDS: SIMVASTATIN 20 MG TABLET PO SCH (21:55)
[2016-11-20] MEDS: FAMOTIDINE 20 MG TABLET. PO SCH (21:55)
[2016-11-20 23:10] VITALS: BP 137/54
[2016-11-21] MEDS: HYDROcodone/APAP 5/325MG 1 TAB TABLET PO PRN ×2 (01:00→09:44)
[2016-11-21 03:10] VITALS: BP 134/56
[2016-11-21 05:03] LABS: BASO # 0.1 x10^3/uL (0.0-0.2); BASO % 1 % (0-3); EOS % 4 % (0-3); HEMATOCRIT 30.7 % (36.0-47.0); HEMOGLOBIN 10.3 g/dL (12.0-15.5); LYMPH # 7.7 x10^3/uL (1.0-4.8); LYMPH % 67 % (24-48); MEAN CORPUSCULAR HEMOGLOBIN 30 pg (25-35); MEAN CORPUSCULAR HGB CONC 34 g/dL (31-37); MEAN CORPUSCULAR VOLUME 90 fL (79-100); MONO % 7 % (0-9); NEUT % 22 % (31-73); PLATELET COUNT 203 x10^3/uL (140-400); RED CELL DISTRIBUTION WIDTH 12.5 % (11.5-14.5); WHITE BLOOD COUNT 11.6 x10^3/uL (4.0-11.0)
[2016-11-21 07:41] VITALS: BP 155/66
[2016-11-21] MEDS: ENOXAPARIN 40 MG/0.4 ML SYRINGE. SQ SCH (07:56)
[2016-11-21] MEDS: LISINOPRIL 20 MG TABLET PO SCH (07:57)
[2016-11-21] MEDS: ESCITALOPRAM 5 MG TABLET. PO SCH (07:57)
[2016-11-21] MEDS: LEVOTHYROXINE 50 MCG TABLET PO SCH (07:57)
[2016-11-21] MEDS: ASPIRIN 325 MG TABLET PO SCH (07:57)
[2016-11-21] MEDS: MELOXICAM 7.5 MG TABLET PO SCH (07:57)
[2016-11-21 08:06] LABS: % BASOS 1 % (0-3); PLT ESTIMATE ADEQUATE (ADEQUATE)
[2016-11-21 11:12] VITALS: BP 139/60
[2016-11-21] MEDS ORDERED: SIMV20TA3 PO (12:18)
[2016-11-21] MEDS ORDERED: ASPI325T8 PO (12:18)
--- NOTE | 2016-11-21 13:28 | PDOC ---
PROGRESS NOTES Assessment Dysarthria, suspect brainstem transient ischemic attack Metabolic encephalopathy. Confusion. HTN HLD Hypothyroidism GERD Plan ASA 325 mg daily, or 300 mg rectal if not take PO. Zocor 20 mg HS. I discussed with the patient the fact that MRI scanner remains out of service. Certainly she has passed the test of time and her exam has been normal, so even if MRI did show a small infarct, management would be unchanged. Therefore okay for discharge Follow-up with neurology as needed Subjective No complaints Objective Vital Signs Date Time Temp Pulse Resp B/P (MAP) Pulse Ox O2 Delivery O2 Flow Rate FiO2 11/21/16 11:12 97.7 68 18 139/60 (86) 96 Room Air 97.7 Intake and Output 11/21/16 07:00 Intake Total 1200 ml Output Total 225 ml Balance 975 ml Intake Oral 1200 ml Output Urine Total 225 ml # Voids 6 PHYSICAL EXAM Alert. Oriented to time, place and person. PERRL. EOMI. CN: no focal findings. Muscle tone: normal. Muscle strength: 5-/5 DTR: 2+ Plantar reflex: flexor Gait: not examined in bed. Sensory exam: no abnormal findings. No cerebellar signs elicited. Review of Relevant I have reviewed the following items erika (where applicable) has been applied. Labs Laboratory Tests Test 11/21/16 03:00 White Blood Count 11.6 x10^3/uL (4.0-11.0) Red Blood Count 3.40 x10^6/uL (3.50-5.40) Hemoglobin 10.3 g/dL (12.0-15.5) Hematocrit 30.7 % (36.0-47.0) Mean Corpuscular Volume 90 fL (79-100) Mean Corpuscular Hemoglobin 30 pg (25-35) Mean Corpuscular Hemoglobin Concent 34 g/dL (31-37) Red Cell Distribution Width 12.5 % (11.5-14.5) Platelet Count 203 x10^3/uL (140-400) Neutrophils (%) (Auto) 22 % (31-73) Lymphocytes (%) (Auto) 67 % (24-48) Monocytes (%) (Auto) 7 % (0-9) Eosinophils (%) (Auto) 4 % (0-3) Basophils (%) (Auto) 1 % (0-3) Neutrophils # (Auto) 2.5 x10^3uL (1.8-7.7) Lymphocytes # (Auto) 7.7 x10^3/uL (1.0-4.8) Monocytes # (Auto) 0.8 x10^3/uL (0.0-1.1) Eosinophils # (Auto) 0.4 x10^3/uL (0.0-0.7) Basophils # (Auto) 0.1 x10^3/uL (0.0-0.2) Segmented Neutrophils % 27 % (35-66) Lymphocytes % 64 % (24-48) Atypical Lymphocytes % (Manual) 2 % (0-0) Monocytes % 6 % (0-10) Basophils % 1 % (0-3) Platelet Estimate Adequate (ADEQUATE) Laboratory Tests Test 11/21/16 03:00 White Blood Count 11.6 x10^3/uL (4.0-11.0) Red Blood Count 3.40 x10^6/uL (3.50-5.40) Hemoglobin 10.3 g/dL (12.0-15.5) Hematocrit 30.7 % (36.0-47.0) Mean Corpuscular Volume 90 fL (79-100) Mean Corpuscular Hemoglobin 30 pg (25-35) Mean Corpuscular Hemoglobin Concent 34 g/dL (31-37) Red Cell Distribution Width 12.5 % (11.5-14.5) Platelet Count 203 x10^3/uL (140-400) Neutrophils (%) (Auto) 22 % (31-73) Lymphocytes (%) (Auto) 67 % (24-48) Monocytes (%) (Auto) 7 % (0-9) Eosinophils (%) (Auto) 4 % (0-3) Basophils (%) (Auto) 1 % (0-3) Neutrophils # (Auto) 2.5 x10^3uL (1.8-7.7) Lymphocytes # (Auto) 7.7 x10^3/uL (1.0-4.8) Monocytes # (Auto) 0.8 x10^3/uL (0.0-1.1) Eosinophils # (Auto) 0.4 x10^3/uL (0.0-0.7) Basophils # (Auto) 0.1 x10^3/uL (0.0-0.2) Segmented Neutrophils % 27 % (35-66) Lymphocytes % 64 % (24-48) Atypical Lymphocytes % (Manual) 2 % (0-0) Monocytes % 6 % (0-10) Basophils % 1 % (0-3) Platelet Estimate Adequate (ADEQUATE) Medications Current Medications Ondansetron HCl (Zofran) 4 mg PRN Q8HRS PRN IV NAUSEA/VOMITING; Start 11/18/16 at 11:30; Stop 11/19/16 at 11:29; Status DC Acetaminophen/ Hydrocodone Bitart (Lortab 5/325) 1 tab PRN Q8HRS PRN PO PAIN Last administered on 11/21/16 09:44; Start 11/18/16 at 14:00 Levothyroxine Sodium (Synthroid) 50 mcg DAILY PO Last administered on 07:57; Start 11/18/16 at 14:00 Lisinopril (Prinivil) 20 mg DAILY PO Last administered on 11/21/16 07:57; Start 11/18/16 at 14:00 Montelukast Sodium (Singulair) 10 mg HS PO Last administered on 11/20/16 21:55 ; Start 11/18/16 at 21:00 Simvastatin (Zocor) 20 mg QHS PO Last administered on 11/20/16 21:55; Start at 21:00 Zolpidem Tartrate (Ambien) 5 mg QHS PO Last administered on 11/20/16 21:55; Start 11/18/16 at 21:00 Escitalopram Oxalate (Lexapro) 10 mg DAILY PO Last administered on 11/21/16 07 :57; Start 11/19/16 at 09:00 Meloxicam (Mobic) 15 mg DAILY PO Last administered on 11/21/16 07:57; Start at 09:00 Enoxaparin Sodium (Lovenox 40mg Syringe) 40 mg Q24H SQ Last administered on 07:56; Start 11/18/16 at 14:00 Famotidine (Pepcid) 20 mg QHS PO Last administered on 11/20/16 21:55; Start at 21:00 Aspirin (Trinity Aspirin) 325 mg DAILYWBKFT PO Last administered on 11/21/16t 07: 57; Start 11/18/16 at 16:00 Active Scripts Active Simvastatin 20 Mg Tablet 20 Mg PO QHS Aspirin 325 Mg Tablet 325 Mg PO [id number] Lisinopril 20 Mg Tablet 1 Tab PO DAILY Reported Ambien (Zolpidem Tartrate) 5 Mg Tablet 1 Tab PO QHS Escitalopram Oxalate 10 Mg Tablet 1 Tab PO DAILY Montelukast Sodium Tablet (Montelukast Sodium) 10 Mg Tablet 10 Mg PO HS Hydrocodone-Apap 5-325 (Hydrocodone Bit/Acetaminophen) 1 Each Tablet 1 Tab PO PRN Q8HRS PRN Meloxicam 15 Mg Tablet 1 Tab PO DAILY Levothyroxine Sodium 50 Mcg Tablet 1 Tab PO DAILY Vitals/I & O Vital Sign - Last 24 Hours 11/20/16 11/20/16 11/20/16 11/20/16 15:00 19:10 19:15 23:10 Temp 97.7 98.0 97.7 97.7 98.0 97.7 Pulse 82 73 69 Resp 18 20 18 B/P (MAP) 158/71 (100) 131/94 (106) 137/54 (81) Pulse Ox 96 96 96 O2 Delivery Room Air Room Air Room Air Room Air 11/21/16 11/21/16 11/21/16 11/21/16 01:00 03:10 07:41 07:57 Temp 98.2 97.7 98.2 97.7 Pulse 75 70 75 Resp 18 18 B/P (MAP) 134/56 (82) 155/66 (95) 134/56 Pulse Ox 96 96 95 O2 Delivery Room Air Room Air Room Air 11/21/16 11/21/16 11/21/16 11/21/16 08:00 09:44 10:44 11:12 Temp 97.7 97.7 Pulse 68 Resp 20 18 18 B/P (MAP) 139/60 (86) Pulse Ox 95 95 96 O2 Delivery Room Air Room Air Room Air Room Air Intake and Output 11/20/16 11/20/16 11/21/16 15:00 23:00 07:00 Intake Total 600 ml 600 ml Output Total 225 ml Balance 600 ml 375 ml Images Echocardiogram: LEFT VENTRICLE The left ventricle is normal size. There is normal left ventricular wall thickness. The Ejection Fraction is 60%. There is normal LV segmental wall motion. Transmitral Doppler flow pattern is Grade I-abnormal relaxation pattern. RIGHT VENTRICLE The right ventricle is normal size. The right ventricular systolic function is normal. ATRIA The left atrium size is normal. The right atrium size is normal. The interatrial septum is intact with no evidence for an atrial septal defect or patent foramen ovale as noted on 2-D or Doppler imaging. AORTIC VALVE The aortic valve is not well visualized. Doppler and Color Flow revealed no significant aortic regurgitation. There is no significant aortic valvular stenosis. MITRAL VALVE The mitral valve is normal in structure There is no evidence of mitral valve prolapse. There is no mitral valve stenosis. Doppler and Color-flow revealed mild mitral regurgitation. TRICUSPID VALVE The tricuspid valve is normal in structure Doppler and Color Flow revealed physiological tricuspid regurgitation. The PA pressure was estimated at 26 mmHg. There is no tricuspid valve stenosis. PULMONIC VALVE The pulmonary valve is normal in structure Doppler and Color Flow revealed mild pulmonic valvular regurgitation. There is no pulmonic valvular stenosis. GREAT VESSELS The aortic root is normal in size. The ascending aorta is normal in size. The IVC is normal in size and collapses >50% with inspiration. PERICARDIAL EFFUSION There is no evidence of significant pericardial effusion. Critical Notification Critical Value: No <Conclusion> The Ejection Fraction is 60%. Transmitral Doppler flow pattern is Grade I-abnormal relaxation pattern. The left atrium size is normal. The right atrium size is normal. The aortic valve is not well visualized. Doppler and Color-flow revealed mild mitral regurgitation. Doppler and Color Flow revealed physiological tricuspid regurgitation. The PA pressure was estimated at 26 mmHg. Doppler and Color Flow revealed mild pulmonic valvular regurgitation. There is no evidence of significant pericardial effusion. SAI AMIN MD Nov 21, 2016 13:28
[2016-11-21 14:52] VITALS: BP 129/57
--- NOTE | 2016-11-22 00:38 | DS ---
DATE OF DISCHARGE: 11/21/2016 CHIEF COMPLAINT: Aphasia. HOSPITAL COURSE: The patient is a 76-year-old woman with past medical history of hypertension, hypercholesterolemia who presented to the Emergency Room with inability to articulate sentences. Apparently, this was noted upon awakening in the morning. Strong suspicion for a CVA was given. Neurology was consulted. Unfortunately, MRI could not be obtained as the MRI machine was broken. The patient thankfully recovered fairly quickly within a day. She was able to speak full sentences and had only occasional stammers in between. She was seen by physical therapy and speech therapy, but declined any further admission to rehab for speech therapy. She was therefore discharged on the to home. MRI was pending, but would not change the diagnosis. She will follow up with PCP to get this set up on an outpatient basis. PHYSICAL EXAMINATION: VITAL SIGNS: From today show a blood pressure of 139/60, heart rate of 68, respiratory rate at 18. She is afebrile. GENERAL: This is a well-nourished 76-year-old woman, awake, alert, in no acute distress. LUNGS: Clear. HEART: Regular rate and rhythm. ABDOMEN: Has positive bowel sounds, soft, nontender. EXTREMITIES: Show no edema. NEUROLOGIC: She appears grossly intact. Minimal speech impediment noticeable. DISCHARGE DISPOSITION: To home. DISCHARGE CONDITION: Improved. DISCHARGE MEDICATIONS: Please refer to MAR. DISCHARGE INSTRUCTIONS: The patient will follow up with PCP in 1-2 weeks. FABIANA LOPEZ MD DR: UR/nts JOB#: [id number] / [id number] STAN Marquez MD
== END 2016-11-21 15:47 | disposition home or self-care (01) | DRG 64 ==
LOC: ER 07:31 → ED HOLD 09:25 → 6 SOUTH 12:09
PROVIDERS: ADMIT Internal Medicine Hematology & Oncology; ATTEND Internal Medicine Hematology & Oncology
DX: I63.9 Cerebral infarction, unspecified (principal); G93.41 Metabolic encephalopathy; D72.829 Elevated white blood cell count, unspecified; E03.9 Hypothyroidism, unspecified; E78.00 Pure hypercholesterolemia, unspecified; E78.5 Hyperlipidemia, unspecified; I10 Essential (primary) hypertension; K21.9 Gastro-esophageal reflux disease without esophagitis; R47.01 Aphasia; Z79.82 Long term (current) use of aspirin; Z90.710 Acquired absence of both cervix and uterus; Z88.5 Allergy status to narcotic agent; Z98.51 Tubal ligation status; Z79.899 Other long term (current) drug therapy
CPT/HCPCS: 36415; 51701; 70450; 71010; 80048; 80053; 80061; 81001; 82306; 82607; 83880; 84443; 84484; 85007; 85027; 93005; 93306; 93880; G0481; J1650; 92610; 99285-25

== ENCOUNTER → 2017-01-16 | Outpatient (CLI) | payer MEDICARE ==
[~2017-01-16] MED LIST changes: +ASPI325T8 PO
--- NOTE | 2017-01-16 14:39 | KCIC ---
INDICATION: Lymphocytosis. TECHNIQUE: Two-view chest radiograph was obtained and compared to a study from November 18, 2016. FINDINGS: Calcified granuloma on the right is stable. The lungs are clear. There is no pleural effusion. The heart is not enlarged and there is no heart failure. There is minimal atheromatous disease in the thoracic aorta. There is no pleural effusion. There are minimal degenerative changes in the spine. IMPRESSION: No acute thoracic findings. Electronically signed by: Deep Coello MD (01/16/2017 2:35 PM) [id number]
== END | disposition home or self-care (01) ==
LOC: KCIC 14:19
PROVIDERS: ATTEND Internal Medicine Hematology & Oncology
DX: D72.820 Lymphocytosis (symptomatic) (principal)
CPT/HCPCS: 71020